=== PATIENT | female | born 1955 | race Caucasian/White ===

== ENCOUNTER 2019-04-28 00:50 | Outpatient (CLI) | payer BC, SELFPAY ==
--- NOTE | 2019-04-28 15:58 | DI.DEXA_ITS ---
SYMPTOM/DIAGNOSIS: SCREENING FOR OSTEOPOROSIS IN POSTMENOPAUSAL WOMAN, Z78.0 DEXA SCAN: Dexa scan was performed according to the usual protocol. Please see the worksheets on PAC's. The findings for lumbar spine scanning are T score of -.1. Findings for left hip scanning are T score of -1.2 with left femoral neck T score of -.7. The findings for left forearm scanning are T score of -1.2. CONCLUSION: Findings consistent with osteopenia. Please note that the lateral vertebral scanogram shows no evidence of a vertebral compression fracture.
--- NOTE | 2019-04-28 16:17 | DI.MAMMO_ITS ---
SYMPTOM/DIAGNOSIS: SCREENING, Z12.31 MAMMOGRAMS: Mammograms were interpreted according to the usual protocol including computer analysis with CAD system, tomosynthesis and C view imaging. The breasts are of moderate density with fairly symmetrical distribution of fibroglandular tissue. No dominant mass or clumped microcalcification is identified in either breast. The current examination is compared with previous examinations including 09/2013 and there has been no gross interval change in appearance in comparison with the previous studies. CONCLUSION: No specific evidence of malignancy at this time. Routine screening examinations are suggested at yearly intervals in this age group according to the ACS/ACR guidelines. Category 1. Breast density, category B. MQSA ASSESSMENT OF FINDINGS: Negative. Category 1. Patient will receive a letter notifying them of these results. BI-RADS category B. There are scattered areas of fibroglandular density.
== END 2019-04-28 01:10 ==
PROVIDERS: PCP Family Medicine; Visit Provider Family Medicine
DX: Z78.0 Asymptomatic menopausal state (principal); M85.88 Other specified disorders of bone density and structure, other site; Z12.31 Encounter for screening mammogram for malignant neoplasm of breast
CPT/HCPCS: 77063; 77067; 77080

== ENCOUNTER 2019-10-09 14:20 | Outpatient (REF) | payer BC, SELFPAY ==
[2019-10-09 20:53] LABS: HCT 36.7 % (36.0-46.0); HGB 11.9 g/dL (12.0-15.5); Mean Corp. HGB Concentration 32.4 g/dL (32.0-36.0); Mean Corpuscular Hemoglobin 34.4 pg (27.0-33.0); Mean Corpuscular Volume 106.1 fL (80-95); Mean Platelet Volume 10.2 fL (8.0-11.0); Platelet Count 261 x1000/uL (130-400); RBC 3.46 m/cumm (4.00-5.20); RBC Distribution Width 12.1 % (11.7-14.6); White Blood Cell Count 5.33 k/cumm (4.4-10.8)
[2019-10-09 21:42] LABS: TSH (W/Ref FT4) 1.25 uIU/mL (0.36-3.74); Vitamin B12 952 pg/mL (193-986)
== END 2019-10-09 14:40 ==
LOC: NCHCN 14:20
PROVIDERS: PCP Family Medicine; Visit Provider Family Medicine
DX: E03.9 Hypothyroidism, unspecified (principal); E53.8 Deficiency of other specified B group vitamins
CPT/HCPCS: 85027; 82607; 84443

== ENCOUNTER 2020-05-05 11:04 | Outpatient (CLI) | payer BC, SELFPAY ==
--- NOTE | 2020-05-05 10:30 | DI.RAD_ITS ---
EXAM: XR SHOULDER RT COMPLETE 2+V CLINICAL HISTORY: Pain after fall TECHNIQUE: COMPARISON: CR LEFT SHOULDER COMPLETE from 07/27/2015 FINDINGS: Three views were obtained. There is a calcific or ossific radiodensity projected adjacent to the sup raspinatus insertion on the humeral head, this may reflect supraspinatus calcific peritendinitis. Ho wever, in the setting of acute injury, the possibility of mildly displaced greater tuberosity fractur e of the humeral head is raised. Correlation with additional radiographic views or CT suggested to d ifferentiate these possibilities. Apart from mild degenerative changes of glenohumeral and AC joints, no additional significant finding s are seen. IMPRESSION: RADIATION DOSE DELIVERED: Total DLP
== END 2020-05-05 11:24 ==
PROVIDERS: PCP Family Medicine; Referring Provider Family Medicine; Visit Provider Physician Assistant Surgical
DX: M19.011 Primary osteoarthritis, right shoulder (principal); M25.511 Pain in right shoulder
CPT/HCPCS: 73030

== ENCOUNTER 2020-07-05 01:05 | Outpatient (CLI) | payer BC, SELFPAY ==
--- NOTE | 2020-07-05 10:40 | DI.MRI_ITS ---
EXAM: MR UPPER JOINT RT WO CLINICAL HISTORY: RT SHOULDER PAIN,CALCIFIC TENDINITIS,IMPINGEMENT SYNDROME,M75.31,M75.21,. TECHNIQUE: Multiplanar multisequence MRI was performed. COMPARISON: CR XR SHOULDER RT COMPLETE 2+V from 05/05/2020 CR XR SHOULDER RT COMPLETE 2+V from 05/05/2020 FINDINGS: MR examination shoulder was performed according to the usual protocol. Bones: There is markedly abnormal signal of the greater tuberosity of the humerus with linear areas o f abnormal signal and focal bony loss also present consistent with an acute or subacute fracture. Mi ld hypertrophic degenerative changes of the acromioclavicular joint noted. Slight marginal osteophyt e formation at the glenohumeral joint with probable articular cartilage thinning of the humeral head. Rotator cuff: There is mildly abnormal signal in supraspinatus and subscapularis tendons consistent w ith tendinosis. No discrete tendon tear. The supraspinatus attachment on the humerus appears to be involved with the aforementioned apparent greater tuberosity fracture without a discrete tendinous te ar. Infraspinatus and teres minor muscle and tendons grossly unremarkable. Biceps tendon: Biceps tendon and anchor appear intact with normal position of the tendon in the bicip ital groove. Labrum: Mild labral effacement, no gross labral tear by noncontrast criteria. IMPRESSION: There is an apparent nondisplaced greater tuberosity fracture of the humerus involving the region of the supraspinatus to subscapularis footprint. No additional significant findings. DATA REPOSITORY:
== END 2020-07-05 01:25 ==
PROVIDERS: PCP Family Medicine; Visit Provider Student in an Organized Health Care Education/Training Program
DX: S42.254A Nondisplaced fracture of greater tuberosity of right humerus, initial encounter for closed fracture (principal); M75.31 Calcific tendinitis of right shoulder; M75.41 Impingement syndrome of right shoulder
CPT/HCPCS: 73221

== ENCOUNTER 2020-08-01 13:25 | Outpatient (CLI) | payer BC, SELFPAY ==
--- NOTE | 2020-08-01 13:15 | DI.RAD_ITS ---
EXAM: XR SHOULDER RT COMPLETE 2+V CLINICAL HISTORY: R shoulder fx. TECHNIQUE: 2D digital imaging was performed. COMPARISON: CR XR SHOULDER RT COMPLETE 2+V from 05/05/2020 MR MR UPPER JOINT RT WO from 07/05/2020 FINDINGS: BONES: The fracture at the superior humeral head small displaced fragment is again noted, unchanged.. No bony destructive lesion is seen. JOINTS: No dislocation present. Mild spurring at the AC joint and glenoid. SOFT TISSUE: Normal. Sternal wires and aortic valve prosthesis are seen. IMPRESSION: Stable appearance of superior humeral head fracture. DATA REPOSITORY: RADIATION DOSE DELIVERED:
== END 2020-08-01 13:45 ==
PROVIDERS: PCP Family Medicine; Referring Provider Family Medicine; Visit Provider Physician Assistant
DX: S42.201A Unspecified fracture of upper end of right humerus, initial encounter for closed fracture (principal)
CPT/HCPCS: 73030

== ENCOUNTER 2020-08-17 10:33 | Outpatient (CLI) | payer BC, SELFPAY ==
--- NOTE | 2020-08-17 09:00 | DI.RAD_ITS ---
EXAM: XR SHOULDER RT COMPLETE 2+V CLINICAL HISTORY: F/u. TECHNIQUE: 2D digital imaging was performed. COMPARISON: CR XR SHOULDER RT COMPLETE 2+V from 05/05/2020 CR XR SHOULDER RT COMPLETE 2+V from 05/05/2020 MR MR UPPER JOINT RT WO from 07/05/2020 MR MR UPPER JOINT RT WO from 07/05/2020 FINDINGS: Calcific density off the superolateral aspect humeral head is again noted.. This is either related to calcific rotator cuff tendinitis or mildly displaced fracture fragment of the greater tuberosity. G lenohumeral joint space otherwise unremarkable. The subacromial space is not diminished. Mild degene rative changes in the AC joint. Sternotomy wires noted. IMPRESSION: As above. Findings are either related to calcific tendinitis and/or trauma related. This DATA REPOSITORY: RADIATION DOSE DELIVERED:
== END 2020-08-17 10:53 ==
PROVIDERS: PCP Family Medicine; Referring Provider Family Medicine; Visit Provider Student in an Organized Health Care Education/Training Program
DX: M25.811 Other specified joint disorders, right shoulder (principal); M19.011 Primary osteoarthritis, right shoulder
CPT/HCPCS: 73030

== ENCOUNTER 2020-09-23 04:35 | Outpatient (CLI) | payer BC, SELFPAY ==
--- NOTE | 2020-09-23 07:45 | DI.CT_ITS ---
EXAM: CT UPPER EXTREMITY RT WO CLINICAL HISTORY: Greater tuberosity fracture,ARTHRITIS,M19.011,NON UNION TECHNIQUE: Imaging Protocol: Axial computed tomography images with coronal and sagittal reformatted images were created and reviewed. CONTRAST MATERIAL: Intravenous: None COMPARISON: CR XR SHOULDER RT COMPLETE 2+V from 08/17/2020 CR XR SHOULDER RT COMPLETE 2+V from 08/17/2020 FINDINGS: There are fracture fragments evident just above the greater tuberosity. No prominent Hill-Sachs defo rmity. Lesser tuberosity is unremarkable. Mild degenerative changes. No osteophytes. No degenerative suba rticular cysts seen in the osseous glenoid and humeral head. There appears to have been fracture of the superior aspect of the greater tuberosity. IMPRESSION: Fracture greater tuberosity with mild displacement of fragments. RADIATION DOSE DELIVERED: 513.36mGy.cm Total DLP DATA REPOSITORY: All CT scans at this facility are submitted to the National Radiology Data Registry (NRDR) Dose Index Registry (DIR) with the [employer] (ACR). RADIATION OPTIMIZATION: All CT scans at this facility use at least one of these dose optimization te chniques: automated exposure control; mA and/or kV adjustment per patient size (includes targeted exa ms where dose is matched to clinical indication); or iterative reconstruction.
== END 2020-09-23 04:55 ==
PROVIDERS: PCP Family Medicine; Visit Provider Student in an Organized Health Care Education/Training Program
DX: S42.251A Displaced fracture of greater tuberosity of right humerus, initial encounter for closed fracture (principal); M19.011 Primary osteoarthritis, right shoulder
CPT/HCPCS: 73200

== ENCOUNTER 2020-10-11 02:22 | Outpatient (CLI) | payer BC, SELFPAY ==
[2020-10-12 12:43] LABS: COVID-19 RT-PCR UVMMC Result Negative (Negative)
== END 2020-10-11 02:23 | disposition home or self-care (01) ==
LOC: LBO 02:22
PROVIDERS: PCP Family Medicine; Visit Provider Student in an Organized Health Care Education/Training Program
DX: Z11.52 Encounter for screening for COVID-19 (principal); Z01.818 Encounter for other preprocedural examination
CPT/HCPCS: U0003

== ENCOUNTER 2020-10-14 09:14 | Day surgery (SDC) | payer BC, SELFPAY ==
[2020-10-14] VITALS (8 sets, daily range): BP systolic 101–132; BP diastolic 61–73; PULSE 56–79; RESP 12–18; TEMP 36.4–36.5; O2SAT 97–100
[2020-10-14] MEDS: Lactated Ringers 1,000 ML 100 ML IV ×2 (10:24→13:19)
[2020-10-14] MEDS: ceFAZolin 2 GM/50 ML BAG IVPB (12:42)
[2020-10-14] MEDS: Bupivacaine 0.25% Pres-Free 30 ML VIAL (14:00)
[2020-10-14] MEDS: EPINEPHrine 1 MG/ML AMP pres-free (14:00)
[2020-10-14] MEDS: EPINEPHrine 30 MG/30 ML VIAL (14:31)
--- NOTE | 2020-10-14 15:40 | PDOC.DSDIS_ITS ---
Discharge Plan Disposition Patient Disposition: HOME Condition: Stable Discharge Details Reason For Visit: Right shoulder surgery Attending Provider: Conner Alcantar Primary Care Provider: Sabina Chavez Home Meds and New Rx's Prescriptions: New naproxen 250 mg tablet 250 - 500 mg PO BID PRN (Reason: Moderate pain or swelling) Qty: 60 RF: 0 ondansetron 4 mg tablet,disintegrating 4 mg PO Q6H PRN (Reason: nausea or vomiting) Qty: 5 RF: 0 oxycodone 5 mg tablet 5 - 10 mg PO Q4H PRN (Reason: moderate to severe pain) Qty: 18 RF: 0 Continued Anoro Ellipta 62.5-25 mcg/actuation blister with device 1 inh IH DAILY RF: 0 multivitamin [Daily Multi-Vitamin] Tablet 1 tab PO DAILY RF: 0 aspirin 325 MG tablet 650 mg PO DAILY RF: 0 indomethacin 25 MG capsule 25 mg PO PRN RF: 0 propranolol 10 MG tablet 10 mg PO BID RF: 0 levothyroxine [Synthroid] 50 MCG tablet 50 mcg PO DAILY RF: 0 hydroxyzine HCl 25 MG tablet 25 mg PO Q 8 HR PRN RF: 0 amitriptyline 25 MG tablet 2 tab PO HS RF: 0 amoxicillin 500 MG capsule 4 tab PO .PRIOR TO DENTIST RF: 0 acetaminophen [Tylenol] 325 MG tablet 650 mg PO Q6H PRN PRNQty: 0 RF: 0 ibuprofen [Advil] 200 MG tablet 2 tab PO TID PRN PRNQty: 0 RF: 0 Discharge Instructions Additional Instructions: Surgery: Shoulder arthroscopy with rotator cuff repair, biceps tenodesis, extensive debridement, subacromial decompression, and distal clavicle excision. Activity: You should keep your arm at your side in a neutral position at all times except for physical therapy. Do not try to lift or raise your arm using your own muscles. You should use the sling whenever you are out of the house. You may have to adjust the abduction pillow or remove it for comfort. At home it is best to remove the sling and rest the arm on a pillow at your side or support the operative side with your other hand. You may allow the arm to da ngle at your side. A physical therapy prescription will be sent electronically to begin in 2-3 weeks. Prescriptions: Resume Aspirin 325 mg daily starting tomorrow Naproxen 250 mg take 1-2 every 12 hours with a meal as needed for moderate pain Oxycodone 5 mg take 1-2 every 4-6 hours as needed for severe pain You may use [id number] Tylenol (acetaminophen) as needed for mild pain. These pain medications may be taken all at once or in different combinations as needed. Ondansetron (Zofran) 4 mg take 1 orally dissolving tablet every 6 hours as needed for nausea or vomiting Also, recommend Colace (docusate) as a stool softener as surgery and pain medicine cause constipation. Dressings: Remove shoulder bandage after 3 days. Leave the sticky Steri-Strips in place until they fall off or remove them after you shower. Cover the incisions with Band-Aids or leave them open to air. The biceps bandage (inside upper arm) is glued on separately. You may leave this one on a few days longer if it is difficult to remove. There is also glue underneath this bandage that can be left in place until it peels off. You may shower after 5 days. Follow-up: 10-[address] Alcantar (1:30 PM on 10/26/20) You may take off the leg compression stockings this evening at home. You may also leave them on a few days longer if you have a history of leg swelling or edema. Let us know right away if you develop any redness, drainage, fevers, chest pain, or trouble breathing. Do not drink alcohol or drive for at least 24 hours after anesthesia. Please call the office during business hours with any questions or concerns. Referrals: Conner Alcantar MD [ [facility] STAFF PHYSICIAN] - Discharge Orders Discharge Orders: Discharge Order (Routine); Ordered 10/14/20 Ordered By: Conner Alcantar DS: Diagnosis Discharge Diagnosis (1) Traumatic tear of right rotator cuff: Status: Acute (2) Arthritis of right acromioclavicular joint: Status: Acute (3) Bursitis of right shoulder: Status: Acute (4) Fracture of greater tuberosity of right humerus: Status: Acute (5) Tendinitis of long head of biceps brachii of right shoulder: Status: Acute (6) Impingement syndrome of right shoulder: Status: Acute
[2020-10-14] MEDS: HYDROmorphone 2 MG/ML VIAL IVP (15:52)
--- NOTE | 2020-10-14 16:03 | W.PM.OP ---
Date of service: 10/14/20 Time of Service: 12:15 Operative Note Operative Note DATE OF PROCEDURE: 10/14/20 PRE-OP DIAGNOSIS: Right: 1. Rotator cuff tear equivalent greater tuberosity fracture 2. LHB tendinopathy 3. Bursitis 4. Impingement 5. AC Joint arthritis POST-OP DIAGNOSIS: same PROCEDURE: Right: 1. Rotator cuff repair, CPT# 80782. This involved repair of the partial articular sided supraspinatus tendon bony avulsion fracture using anchors and sutures to reattach the rotator cuff back to the greater tuberosity. 2. Open biceps tenodesis, CPT# 31416. This involved reattaching the long head of the biceps tendon to the proximal humerus in the sub-pectoral area of the bicipital groove at the correct tension. 3. Extensive debridement, CPT# 64319. This involved using arthroscopic hand instruments, power instruments, and radiofrequency instruments to release to release the long head of the biceps tendon and debride areas of significant superior labral tearing, abundant anterior and superior synovitis, debride cartilage including loose flaps posterior humeral head as a chondroplasty, and humeral head avulsion bony fragments about the greater tuberosity while working within the glenohumeral joint anteriorly, superiorly and posteriorly. 4. Subacromial decompression with partial acromioplasty, CPT# 26836. This involved using arthroscopic power instruments and a radiofrequency wand to complete a bursectomy and remove bone spurs on the undersurface of the acromion. 5. Arthroscopic distal clavicle excision, CPT# 46928. This involved arthroscopically exposing the underside of the acromioclavicular joint, smoothing out bone spurs, and using a loretta to remove approximately 5 mm of the distal clavicle so there was no bone left engaging the acromion. The assistant professor of physics was medically required in order to help assist in techniques above, which require positioning the arm, holding the arthroscope, and manipulating multiple instruments and sutures at the same time. This cannot be done without the help of an experienced assistant professor of physics. SURGEON: Conner Alcantar CAR REFINISHER: Paco Cisneros ANESTHESIA: GETA and regional ESTIMATED BLOOD LOSS: 10 PATHOLOGY: none sent COMPLICATIONS: None Patient was transported to: PACU Patient's condition: stable Implants: Arthrex: 3.9 mm knotless corkscrew anchors x2 and 4.75 mm SwiveLock x1 and FiberTak 2.6 mm all-suture Button Implant Indications: The patient was diagnosed with the above conditions and appropriately indicated for surgical intervention. Please see complete medical record for details. Findings: Exam under anesthesia: Full, symmetrical range of motion without instability. Mechanical crepitation with glenohumeral circumduction. Glenohumeral joint: Profound split tearing, subluxation and degeneration of the intra-articular segment of the long head of the biceps tendon and a SLAP tear both with significant fraying and disruption of the biceps anchor. Significant anterior and superior synovitis. Moderate posterior synovitis. Posterior humeral head 6 x 8 mm partial-thickness unstable cartilage flap. Moderate central glenoid grade 2-3 chondromalacia. Intact subscapularis. Intact infraspinatus. Partial articular sided bony avulsion supraspinatus tendon with multiple small bony avulsion fragments and exposed 30% medial to lateral footprint from the biceps interval anteriorly to the infraspinatus posteriorly. Partial healing versus partial nonunion with fluid line between avulsion bony fractures and rotator cuff greater tuberosity footprint bony bed. Subacromial space: Significant bursitis especially laterally. Moderate undersurface acromial bone spur and impinging inferiorly acromioclavicular joint. Intact bursal rotator cuff. Procedure Description: In the operating room, general anesthesia was induced. Bilateral shoulders were examined. The patient was positioned in the beachchair position. All bony prominences were well-padded. Preoperative antibiotics were administered. The shoulder was prepped and draped in the usual sterile fashion. The correct patient, procedure, and side of the procedure were all verified prior to incision. Starting through the posterior portal a standard complete diagnostic arthroscopy was performed of the glenohumeral joint including inspection of the long head of the biceps, anterior and superior labrum, subscapularis tendon, supraspinatus and infraspinatus tendons, and axillary recess. The glenoid and humeral head cartilage as well as the posterior labrum were inspected from an anterior viewing portal. Significant findings and interventions noted above. The biceps tendon was released from the superior labrum using arthroscopic scissors. Starting through the posterior portal, the arthroscope was directed into the subacromial space. A lateral 50 yard line lateral portal was created. A combination of power instruments and a radiofrequency ablator were used to debride bursitis anteriorly, posteriorly, and laterally as well as expose and smooth bone spurring on the undersurface of the acromion. The coracoacromial ligament was preserved. The bursectomy was completed viewing laterally and working from posteriorly and the rotator cuff was thoroughly inspected with findings noted above. The anterior portal was redirected towards the undersurface of the AC joint. A shaver and electrocautery device were used to clear soft tissue from the undersurface of the AC joint. A loretta was then inserted and used to remove the distalmost 5 mm of the distal clavicle. Care was taken to alternate between working through the anterior portal and viewing through the anterior portal to ensure that proper amount of bone was removed and there was no engaging bone left behind especially superiorly. 20 cc of 0.25% bupivacaine with epinephrine was infiltrated about a 2 to 3 cm longitudinal incision at the inferior margin of the pectoralis major localized over the long head of the biceps tendon. Blunt and sharp dissection were used to expose the tendon in the bicipital groove. The tendon was brought out of the wound and kept off the skin on top of a blue towel. Using a fiber loop suture the tendon was prepped from the musculotendinous junction a few centimeters proximal. The excess tendon was amputated. The correct location for sub-pectoral fixation was localized, prepped with a rasp, and then drilled with a 2.6 mm drill pin in a unicortical fashion through the guide. The FiberTak button implant was inserted through the guide, deployed, and tested. The free FiberLoop suture ends were then passed through the implant using the preloaded FiberLoop shuttling sutures. The sutures were tensioned bringing the tendon down to bone. Tension and fixation were then tested and found to be appropriate. The free ends of the suture were were tied compressing tendon to bone. The wound was copiously irrigated with normal saline. Subcutaneous tissue was closed using 3-0 Monocryl in a buried interrupted fashion. Skin was closed using 3-0 Monocryl in a buried subcuticular running fashion. Skin glue was applied over the incision. Mastisol was applied about the incision. The incision was covered with Telfa, gauze, and covered with a Tegaderm dressing. Attention was then turned to the partial articular sided supraspinatus tendon bony avulsion rotator cuff tear fracture. Owing to significant intact rotator cuff tendon and bone laterally over the greater tuberosity, the decision was made to proceed with percutaneous PASTA type repair. First, the fracture bed was explored with elevators and debrided of fibrinous tissue to optimize healing especially underneath the intact bony segment more centrally under the supraspinatus footprint and that it was allowed to retract back down on its own closing the door with only the medial margin aspect still exposed. The arm was positioned at the patient's side with slight external rotation. Spinal needles were used to localize percutaneous anchor placements coming off of the acromion targeting the articular margin anteriorly and posteriorly. The Nitinol is inserted through the spinal needle, spinal needle removed, a small skin incision was made, and a dilator used to confirm appropriate trajectory. The fishmouth spear was then inserted, dilator removed, and the punch tap used for the planned corkscrew anchor. This anchor was inserted at this anterior position. This process was repeated similarly for the posterior anchor. The arthroscope was redirected into the subacromial space. A cannula was inserted at the 50 yard line portal laterally. Carefully, the repair stitch from the posterior anchor and the looped end of the leg from the anterior suture were brought out this portal and then the repair stitch was fed through the anterior anchor. This was repeated bringing the anterior repair stitch out the posterior anchor. Provisional tightening was done just bringing sutures just about down to the rotator cuff. The arthroscope was then redirected back into the glenohumeral joint to observe the reduction of bony avulsion and supraspinatus tendon over the articular sided zone of injury. Appropriate tensioning was completed and repair inspected found to be stable. The arthroscope was then redirected back into the subacromial space. The free remaining and from the anterior and posterior anchors was then brought out the lateral portal. The arm was positioned optimized trajectory for the planned lateral row anchor. The ablator was used to debride bursa just off the lateral margin of the greater tuberosity. The punch was used to localize placement for the suture anchor. The sutures were fed through the swivel lock eyelet and the swivel lock inserted into bone with appropriate tension on the repair sutures achieving compression over the greater tuberosity avulsion fracture and rotator cuff tear. Suture tails were cut. The shoulder was drained of arthroscopic fluid. All portal sites were copiously irrigated. These incisions were closed using 3-0 Monocryl in a buried fashion, covered with Mastisol, Steri-Strips, Xeroform, dry gauze, and ABDs. The dressings were covered and secured with Medipore tape. The operative extremity was placed into a sling for immobilization. The patient awoke from anesthesia without complication and was transferred to the recovery room in a stable condition.
== END 2020-10-14 17:40 | disposition home or self-care (01) ==
PROVIDERS: PCP Family Medicine; Visit Provider Student in an Organized Health Care Education/Training Program
PROC: (CPT 29827; principal; 2020-10-14 10:45)
DX: S46.011A Strain of muscle(s) and tendon(s) of the rotator cuff of right shoulder, initial encounter (principal); S42.251A Displaced fracture of greater tuberosity of right humerus, initial encounter for closed fracture; S43.431A Superior glenoid labrum lesion of right shoulder, initial encounter; X58.XXXA Exposure to other specified factors, initial encounter; M75.21 Bicipital tendinitis, right shoulder; M75.51 Bursitis of right shoulder; M25.811 Other specified joint disorders, right shoulder; M19.011 Primary osteoarthritis, right shoulder; M65.811 Other synovitis and tenosynovitis, right shoulder; M94.211 Chondromalacia, right shoulder; G89.18 Other acute postprocedural pain; K21.9 Gastro-esophageal reflux disease without esophagitis
CPT/HCPCS: 29827; 23430; 29823; 29826; 29824; C1713; 76942; J0131; J0171; J0690; J1100; J1885; J2250; J2405

== ENCOUNTER 2020-12-13 00:53 | Outpatient (CLI) | payer BC, SELFPAY ==
--- NOTE | 2020-12-13 | DI.RAD_ITS ---
EXAM: XR FOOT LT COMPLETE CLINICAL HISTORY: LT FOOT PAIN, M79.672 TECHNIQUE: COMPARISON: No exams were available for comparison FINDINGS: Three views were obtained. Bony alignment generally appears within normal limits. There is deformit y of the head of the 2nd metatarsal and deformity of the base the proximal phalanx of the 2nd toe, qu estion posttraumatic. Mild deformity of the head of the 3rd metacarpal is also noted. Cartilaginous joint space of the 2nd MTP joint appears fairly well maintained. No other significant bony abnormality seen. IMPRESSION: No evidence of acute process. Question old post-traumatic deformities at 2nd MTP joint, if the patien t has clinical symptoms referable to this region additional evaluation with CT or MR may be considere d. RADIATION DOSE DELIVERED: Total DLP
== END 2020-12-13 01:13 ==
PROVIDERS: PCP Family Medicine; Visit Provider Family Medicine
DX: M79.672 Pain in left foot (principal); M21.6X2 Other acquired deformities of left foot
CPT/HCPCS: 73630

== ENCOUNTER 2021-06-06 08:21 | Outpatient (REF) | payer BC, SELFPAY ==
[2021-06-06 14:44] LABS: ALT 50 U/L (14-59); AST 57 U/L (15-37); Albumin 3.8 g/dL (3.4-5.0); Alkaline Phosphatase 95 U/L (46-116); BUN 15 mg/dL (7-18); Bilirubin, Total 0.3 mg/dL (0.2-1.0); Calcium 9.6 mg/dL (8.5-10.1); Calculated LDL 198 mg/dL (<100); Chloride 106 mmol/L (98-107); Cholesterol 319 mg/dL (<200); Estimated GFR 55.82 (mL/min/1.73m2); Glucose 116 mg/dL (74-106); HDL Cholesterol 88 mg/dL (40-60); Potassium 5.4 mmol/L (3.5-5.1); Sodium 141 mmol/L (136-145); TSH (W/Ref FT4) 1.81 uIU/mL (0.36-3.74); Total Protein 7.1 g/dL (6.4-8.2); Triglyceride 168 mg/dL (<150)
== END 2021-06-06 08:22 | disposition home or self-care (01) ==
LOC: NCHCN 08:21
PROVIDERS: PCP Family Medicine; Visit Provider Family Medicine
DX: E03.9 Hypothyroidism, unspecified (principal); R03.0 Elevated blood-pressure reading, without diagnosis of hypertension; Z00.00 Encounter for general adult medical examination without abnormal findings
CPT/HCPCS: 80053; 80061; 84443

== ENCOUNTER 2022-02-23 14:58 | Outpatient (REF) | payer MEDICARE, SELFPAY ==
[2022-02-23 14:26] LABS: ALT 48 U/L (14-59); AST 38 U/L (15-37); Alkaline Phosphatase 88 U/L (46-116); Anion Gap 8.9 mmol/L (3-11); BUN 18 mg/dL (7-18); Bilirubin, Total 0.3 mg/dL (0.2-1.0); CO2 27.1 mmol/L (21.0-32.0); Calcium 9.7 mg/dL (8.5-10.1); Calculated LDL 177 mg/dL (<100); Chloride 102 mmol/L (98-107); Cholesterol 291 mg/dL (<200); Estimated GFR 55.64 (mL/min/1.73m2); Glucose 94 mg/dL (74-106); HDL Cholesterol 93 mg/dL (40-60); Potassium 5.5 mmol/L (3.5-5.1); Sodium 138 mmol/L (136-145); Triglyceride 107 mg/dL (<150)
== END 2022-02-23 14:59 | disposition home or self-care (01) ==
LOC: NCHCN 14:58
PROVIDERS: PCP Family Medicine; Visit Provider Family Medicine
DX: E78.5 Hyperlipidemia, unspecified (principal); I10 Essential (primary) hypertension
CPT/HCPCS: 80053; 80061

== ENCOUNTER 2022-09-14 11:43 | Outpatient (REF) | payer MEDICARE, SELFPAY ==
[2022-09-14 15:51] LABS: HCT 40.1 % (36.0-46.0); MCH 35.1 pg (27.0-33.0); MCHC 32.4 % (32.0-36.0); MCV 108 fL (80-95); MPV 10.4 fL (8.0-11.0); Platelet Count 275 10^3/uL (130-400); RDW 12.9 % (11.7-14.6); WBC 5.55 10^3/uL (4.4-10.8)
[2022-09-14 16:04] LABS: ALT 43 U/L (14-59); AST 67 U/L (15-37); Albumin 4.1 g/dL (3.4-5.0); Alkaline Phosphatase 100 U/L (46-116); Anion Gap 6.3 mmol/L (3-11); BUN 14 mg/dL (7-18); Bilirubin, Total 0.5 mg/dL (0.2-1.0); CO2 30.7 mmol/L (21.0-32.0); CREATININE 0.8 mg/dL (0.55-1.02); Chloride 104 mmol/L (98-107); Estimated GFR 81.21 (mL/min/1.73m2); Glucose 103 mg/dL (74-106); Potassium 5.4 mmol/L (3.5-5.1); Sodium 141 mmol/L (136-145); TSH (W/Ref FT4) 2.54 uIU/mL (0.36-3.74); Total Protein 7.4 g/dL (6.4-8.2)
== END 2022-09-14 11:44 | disposition home or self-care (01) ==
LOC: NCHCN 11:43
PROVIDERS: PCP Family Medicine; Visit Provider Family Medicine
DX: E03.9 Hypothyroidism, unspecified (principal); I10 Essential (primary) hypertension; E78.5 Hyperlipidemia, unspecified
CPT/HCPCS: 80053; 85027; 84443

== ENCOUNTER 2022-09-18 00:40 | Outpatient (CLI) | payer MEDICARE, SELFPAY ==
--- NOTE | 2022-09-18 | DI.MAMMO_ITS ---
Exam(s) MAMMO SCREENING EXAM: MAMMO SCREENING CLINICAL HISTORY: SCREENING, Z00.00, WELL ADULT/PREVENTATIVE EXAM TECHNIQUE: Bilateral full field digital CC and MLO mammographic images were obtained with 3D tomosyn thesis and utilizing computer aided detection (CAD). COMPARISON: Available for comparison. FINDINGS: Masses/Architectural Distortion: None seen. Microcalcifications: No suspicious pleomorphic-type are seen. Skin Thickening/Nipple Retraction: None. IMPRESSION: 1. No significant interval change with no specific features of malignancy noted. 2. Unless there is more urgent need, screening mammography is recommended, as per [employer] [place] [employer] guidelines. BI-RADS Category 1 - Negative Breast Density - Category B - Scattered areas of fibroglandular density Breast density category C or D implies that the patient has dense breast tissue. Dense breast tissue is very common and is not abnormal but dense breast tissue can make it harder to find cancer on a ma mmogram. Also, dense breast tissue may increase their breast cancer risk. This information about the result of the mammogram report was provided to the patient to raise their awareness. Use this report when you speak with the patient about their risks for breast cancer, which includes their family hist ory. At that time, you may recommend for more screening tests (Ultrasound or MRI) as they might be us eful based on their risk. A negative radiographic report should not delay biopsy if a dominant or clinically suspicious mass is present. Up to ten percent of cancers are not identified on mammography. A negative report may reinforce clinical impression. Adenosis and dense breasts may obscure an underlying neoplasm. False positive reports average 6 to 10%. Patient will receive a letter notifying them of these results.
== END 2022-09-18 01:00 ==
PROVIDERS: PCP Family Medicine; Visit Provider Family Medicine
DX: Z12.31 Encounter for screening mammogram for malignant neoplasm of breast (principal)
CPT/HCPCS: 77063; 77067

== ENCOUNTER 2022-10-02 13:23 | Outpatient (CLI) | payer MEDICARE, SELFPAY ==
--- NOTE | 2022-10-02 13:15 | RT.EKG_ITS ---
APPROVED REPORT Exam: Resting ECG Reason for Exam: cardiac evaluation Patient Location: O HR:63 bpm ECG Measurements Heart Rate 63 AXIS IN 174 P 57 QRSd 101 QRS -3 QT 446 T 59 QTc 457 Conclusion Sinus rhythm...normal P axis, V-rate 50- 99 Abnormal R-wave progression, early transition...QRS area>[address] depression, lateral leads...ST <-0.04mV, I aVL V5 V6
== END 2022-10-02 13:24 | disposition home or self-care (01) ==
LOC: DI.CARD 13:24
PROVIDERS: PCP Family Medicine; Visit Provider Internal Medicine Cardiovascular Disease
DX: E78.5 Hyperlipidemia, unspecified (principal); I10 Essential (primary) hypertension; R07.9 Chest pain, unspecified; Z95.2 Presence of prosthetic heart valve
CPT/HCPCS: 93010

== ENCOUNTER → 2022-10-02 13:30 | Outpatient (BNVA) | payer MEDICARE, SELFPAY | PROVIDERS: PCP Family Medicine; Referring Provider Family Medicine; Visit Provider Internal Medicine Cardiovascular Disease | DX: R07.9 Chest pain, unspecified (principal); I10 Essential (primary) hypertension; Z95.3 Presence of xenogenic heart valve; Z98.890 Other specified postprocedural states; R06.09 Other forms of dyspnea | CPT/HCPCS: 93005; 99214 ==

== ENCOUNTER 2023-03-26 00:36 | Outpatient (CLI) | payer MEDICARE, SELFPAY ==
--- NOTE | 2023-03-26 07:15 | DI.US_ITS ---
APPROVED REPORT EXAM: Comprehensive 2D, Doppler, and color-flow Echocardiogram Patient Location: Out-Patient Shellfish Weigher: Travis Funes RDMS, RVT Indications: s/p AVR, exertional dyspnea, chest pain Other Information Study Quality: Adequate Conclusion Normal left ventricular wall thickness and chamber size. Ejection fraction is 55%. Wall motion is n ormal Normal right ventricular size and systolic function Both atria are normal in size There is a bioprosthetic aortic valve. Gradients are appropriate. There is no aortic regurgitation Thickened mitral leaflets with mild to moderate eccentric mitral regurgitation Normal tricuspid valve with moderate regurgitation. Estimated right ventricular systolic pressure is 30 mmHg Mildly dilated ascending aorta 3.89 cm the Wall motion Left Ventricle The left ventricle is normal size. The left ventricular systolic function is normal. The left ventric ular ejection fraction is within the normal range. There is normal left ventricular wall thickness. T here is normal LV segmental wall motion. There is no ventricular septal defect visualized. LVEF is 55 %. Right Ventricle The right ventricle is normal size. The right ventricular systolic function is normal. The RVSP is 30 .3 mmHg. Atria The left atrium size is normal. The right atrium size is normal. The interatrial septum is intact wit h no evidence for an atrial septal defect. Aortic Valve Bioprosthetic aortic valve is present. No aortic regurgitation is present. Bioprosthetic aortic valve is present. Mitral Valve Thickened mitral leaflets No evidence of mitral valve stenosis. Mild to moderate mitral regurgitation . Tricuspid Valve The tricuspid valve is normal in structure. There is no tricuspid valve stenosis. Moderate tricuspid regurgitation. Pulmonic Valve The pulmonary valve is normal in structure. There is no pulmonic valvular stenosis. There is no pulmo noel valvular regurgitation. Great Vessels The aortic root is normal in size. The ascending aorta is mildly dilated. Aortic arch is normal in ca liber. IVC is normal in size and collapses >50% with inspiration. Pericardium There is no pericardial effusion. 2D Dimensions IVSD d PLAX 0.61 cm F: 0.6-1.0 LV Vol A2C d MOD 54.8 mL LVPW d PLAX 0.64 cm F: 0.6 - 1.0 LV Vol A4C d MOD 85.1 mL LVID d PLAX 3.98 cm F: 3.8 - 5.2 LA vol/ BSA A4C s A-L 18.8 mL/m2 LVDs 2.65 cm F: 2.2 - 3.5 LA Area A4C s MOD 12.02 cm2 Ao Root d 2.70 cm F: 2.7 - 3.3 LV EF A4C MOD 54.7 % Ao Asc Diam d 3.89 cm F: 2.3 - 3.1 LV EF A2C MOD 54.2 % LV EF Teichholz 61.3 % LV EF Biplane MOD 54.5 % LVEF (Sandy's) 54.52 % F: 54 - 74 SV 37.42 mL LV Volume 56.55 mL F: 46 - 106 SV Index 24.23 mL/m2 LV Volume Index 36.72 mL/m2 F: 29 - 61 LV Vol Biplane MOD 68.6 mL FS 32.40 % M-Mode TAPSE 1.72 cm (M/F) >1.7 LV Diastology MV E' medial 0.095 (>0.07 m/s) E/A Ratio 0.8 LV E/e MED 8.20 (<14) MV E Vmax 0.78 (0.4-1.3 m/s) MV E' lateral 0.089 (>0.1 m/s) MV A Vmax 0.95 (0.4-1.3 m/s) LV E/e LAT 8.70 (<14) MV E/A Ratio 0.82 MV E/E' medial 8.21 MV E/E' lateral 8.73 Aortic Valve LVOT Area 3.21 cm2 AoV Area Vmax 1.93 cm2 LVOT Vmax 0.82 m/s AoV Area/ BSA (Vmax) 1.25 cm2/m2 LVOT Mean Pablo. 0.49 m/s GIANNI Mean Pablo. 1.90 cm2 LVOT Peak Grad 2.7 mmHg GIANNI Mean Pablo. Index 1.23 cm2/m2 LVOT Mean Grad 1.2 mmHg LVOT VTI 0.202 m LVOT Diam s 2.00 cm AoV Vmax 1.37 m/s Velocity Ratio 0.60 AoV Mean Pablo. 0.83 m/s AoV Peak Grad 7.5 mmHg LVOT SV 64.89 mL AoV Mean Grad 3.5 mmHg AoV VTI 0.289 m AoV Area VTI 2.24 cm2 AoV Area/ BSA (VTI) 1.45 cm/m2 Mitral Valve MV DT 137 (160-240 msec) MV PHT 40 msec MV Area PHT 5.55 cm2 MV VTI 0.301 m MV Area VTI 2.16 (4.0-6.0 cm2) Pulmonary Valve PV Vmax 0.86 (0.5-1.5 m/s) RVOT Peak Gr. 0.70 mmHg PV Peak Grad 2.9 mmHg RVOT Mean Gr. 0.40 mmHg PV Mean Grad 1.3 mmHg RVOT VTI 0.110 m PV VTI 0.188 m RVOT Vmax 0.42 m/s Tricuspid Valve TR Peak Grad 27.3 mmHg TR Vmax 2.61 m/s RA Pressure 3.00 mmHg RVSP (TR) 30.3 mmHg
== END 2023-03-26 00:56 ==
LOC: DI 00:37
PROVIDERS: PCP Family Medicine; Visit Provider Internal Medicine Cardiovascular Disease
DX: R07.9 Chest pain, unspecified (principal); Z95.3 Presence of xenogenic heart valve
CPT/HCPCS: 93306

== ENCOUNTER → 2023-04-01 13:15 | Outpatient (BNVA) | payer MEDICARE, SELFPAY | PROVIDERS: PCP Family Medicine; Visit Provider Internal Medicine Cardiovascular Disease | DX: I10 Essential (primary) hypertension (principal); Z95.2 Presence of prosthetic heart valve; E78.5 Hyperlipidemia, unspecified | CPT/HCPCS: 99213 ==

== ENCOUNTER → 2023-04-09 08:26 | Outpatient (BNVA) | payer MEDICARE, SELFPAY | PROVIDERS: PCP Family Medicine; Referring Provider Family Medicine; Visit Provider Surgery | DX: K21.9 Gastro-esophageal reflux disease without esophagitis (principal) | CPT/HCPCS: 99202; 99213 ==

== ENCOUNTER 2023-04-24 08:05 | Day surgery (SDC) | payer MEDICARE, SELFPAY ==
--- NOTE | 2023-04-24 08:15 | W.PM.PROGNOT ---
Date of Service Date of service: 04/24/23 Time of Service: 08:56 Assessment and Plan Assessment and plan (1) GERD (gastroesophageal reflux disease): Status: Chronic Assessment and plan: Katharine is a pleasant 67-year-old female who has had reflux for many years.? She was taking Prilosec [id number] and Tums.? In the recent past she started having swallowing issues and her primary care physician increased her PPI to 40 mg daily.? She has not noticed much difference.? She continues to use Tums.? She has had no anesthesia issues in the past.? We discussed the pathophysiology of GERD and dysphagia.? We reviewed the procedure in detail as well as the risks, benefits and complications.? Risks, benefits and complications have been reviewed. Complications include but are not limited to bleeding, pain, perforation, sore throat, aspiration, and adverse reaction to the medications.? Questions were entertained and answered to their satisfaction and they wished to proceed. No guarantees were given or implied.? After reviewing the risks, benefits and complications the patient had a good understanding of the complications and wished to proceed. Subjective Subjective Interval history since last seen: Katharine is here in same-day surgery today to undergo an EGD. I had seen her in the office for continued GERD symptoms as well as difficulty swallowing. She feels like she has a lump in the top of her throat. She has not had any new symptoms. She denies any chest pain or shortness of breath. She has not had an upper respiratory infection recently. Time Spent with Patient Time Spent with Patient: <25 minutes Time was spent: counseling the patient
--- NOTE | 2023-04-24 08:17 | ENDO_ITS ---
Date of service: 04/24/23 Time of Service: 10:52 Endoscopy Report DATE OF PROCEDURE: 04/24/23 PRE-OP DIAGNOSIS: GERD POST-OP DIAGNOSIS: other (gastritis, scarring of esophagus at 16 cm) PROCEDURE: EGD with biopsies SURGEON: Carol Conway ANESTHESIA TYPE: General:No Airway ESTIMATED BLOOD LOSS: 5 PATHOLOGY: other (Bx of stomach, esophagus, ) COMPLICATIONS: None DISPOSITION: same day INDICATIONS: Katharine is a pleasant 67-year-old female who has had reflux for many years.? She was taking Prilosec [id number] and Tums.? In the recent past she started having swallowing issues and her primary care physician increased her PPI to 40 mg daily.? She has not noticed much difference.? She continues to use Tums.? She has had no anesthesia issues in the past.? We discussed the pathophysiology of GERD and dysphagia.? We reviewed the procedure in detail as well as the risks, benefits and complications.? Risks, benefits and complications have been reviewed. Complications include but are not limited to bleeding, pain, pe rforation, sore throat, aspiration, and adverse reaction to the medications.? Questions were entertained and answered to their satisfaction and they wished to proceed. No guarantees were given or implied.? After reviewing the risks, benefits and complications the patient had a good understanding of the complications and wished to proceed. FINDINGS: inflammation of the stomach Shelf of scar tissue at 16 cm in the proximal esophagus PROCEDURE DESCRIPTION: After informed consent was obtained the patient was take to the procedure room and placed in a supine position. Monitors were applied and a time out was done. The patients name, date of , procedure type, allergies to medications and metal in their body was reviewed. A bite block was placed and the patient was sedated. Once sedated and comfortable the gastroscope was advanced through the oropharynx which was grossly normal into the esophagus. In the proximal esophagus at 16 cm there was a shelf of scar tissue noted. The mid and distal esophagus were noted to be normal. The scope was advanced into the stomach and through the pylorus into the 3rd portion of the duodenum. The duodenum was noted to be normal. The scope was retracted back into the stomach. There was moderate inflammation noted and biopsies were done to rule out H. pylori. There were no ulcers. The scope was retroflexed. The cardia and fundus were noted to be normal. There was no hiatal hernia noted. The scope was retracted back into the esophagus and biopsies were done of the GE junction to rule out Narayan's. The Z line was regular. The GE junction was at 35 cm. At 16 cm in the proximal esophagus, the scar tissue was biopsied in severeal places to hopefully soften the scar tissue. The scope was removed and the patient was woken up and taken back to [facility] in stable condition. Follow up: 2 weeks
[2023-04-24 08:20] VITALS: BP 151/73; PULSE 68; RESP 16; TEMP 36.5; O2SAT 100
[2023-04-24] MEDS: Lactated Ringers 1,000 ML 80 ML IV (08:33)
--- NOTE | 2023-04-24 08:38 | W.ANESPRE ---
General Info Date of Service Date Performed: 04/24/23 Height: 5 ft Weight: 59.9 kg Body Mass Index (BMI): 25.7 Surgical Procedure: Operation Date: 04/24/23 09:35 Proposed Procedure Side Surgeon p Gastroscopy Carol Conway MD Meds Allergies and Home Medications Allergies Allergy/AdvReac Type Severity Reaction Status Date / Time morphine Allergy Intermediate Hives Verified 04/24/23 08:17 topiramate [From Topamax] Allergy Mild Verified 04/24/23 08:17 codeine AdvReac Severe N&V Verified 04/24/23 08:17 Home Medication Medication Instructions Recorded amitriptyline 25 mg tablet 2 tab PO HS 04/03/14 indomethacin 25 mg capsule 25 mg PO PRN 07/27/15 hydroxyzine HCl 25 mg tablet 25 mg PO Q 8 HR PRN 01/03/16 levothyroxine 50 mcg tablet 50 mcg PO DAILY 01/03/16 (Synthroid) propranolol 10 mg tablet 10 mg PO BID 01/03/16 amoxicillin 500 mg capsule 4 tab PO .PRIOR TO DENTIST 05/21/16 acetaminophen 325 mg tablet 650 mg PO Q6H PRN PRN ##0 05/29/16 (Tylenol) ibuprofen 200 mg tablet (Advil) 2 tab PO TID PRN PRN ##0 05/29/16 umeclidinium 62.5 mcg-vilanterol 1 inh inhalation DAILY 05/05/20 25 mcg/actuation powdr for inhalation (Anoro Ellipta) multivitamin (Daily Multi-Vitamin 1 tab PO DAILY 08/17/20 tablet) aspirin 325 mg tablet 325 mg PO DAILY 09/18/22 omeprazole 40 mg capsule,delayed 40 mg PO DAILY 04/01/23 release Current Visit Medications: Current Medications Generic Name Dose Route Start Last Admin Trade Name Freq PRN Reason Stop Dose Admin Ringer's Solution 1,000 mls @ 80 mls/hr 04/24/23 06:00 04/24/23 08:33 IV 04/24/23 16:00 80 mls/hr INFUSION THOMAS Administration IV Miscellaneous Supplies 1 each 04/24/23 06:00 Iv Access IV 04/24/23 16:00 DIRECTED THOMAS Ondansetron HCl 4 mg 04/24/23 08:19 Ondansetron 4 Mg/2 Ml Vial IVP 05/24/23 08:18 Q4H PRN PRN Nausea / Vomiting Sodium Chloride 0 ml 04/24/23 06:00 Normal Saline Flush 10 Ml Syr IV 04/24/23 16:00 PRN PRN Sodium Chloride 0 ml 04/24/23 06:00 Normal Saline 10 Ml Vial IJ 04/24/23 16:00 DIRECTED PRN Sterile Water 0 ml 04/24/23 06:00 Water,Injection,Sterile 10 Ml Vial IJ 04/24/23 16:00 DIRECTED PRN PFSH Active Problems Active Problems: Problem Status Onset Code Impingement syndrome of right shoulder M75.41 Tendinitis of long head of biceps brachii of right shoulder M75.21 History of aortic valve replacement with bioprosthetic valve Z95.3 Fracture of greater tuberosity of right humerus S42.251A Bursitis of right shoulder M75.51 Traumatic tear of right rotator cuff S46.011A Arthritis of right acromioclavicular joint M19.011 Hypertension I10 Hyperlipidemia E78.5 Anxiety F41.9 GERD (gastroesophageal reflux disease) K21.9 Medical History Medical History Cancer of cervix Chest pain Per pt. f/u with cards (last time was 04/01/23) COPD (chronic obstructive pulmonary disease) Hypothyroidism Surgical History Surgical History H/O aortic valve replacement H/O: hysterectomy History of arthroscopy of left shoulder History of carpal tunnel surgery (right) Tobacco Smoking/Tobacco Use Status: Former Tobacco Use Alcohol Alcohol Intake: current Alcohol intake frequency: a few times a week Alcohol type: wine Substance Use Substance use: Never Substance use type: does not use Vital Signs and Lab Results Vital Signs Most Recent Vital Signs in EMR: Most Recent Vital Signs Temp Pulse Resp BP Pulse Ox 36.5 C 68 16 151/73 H 100 04/24/23 08:20 04/24/23 08:20 04/24/23 08:20 04/24/23 08:20 04/24/23 08:20 Lab Results Blood Type / Crossmatch: No Data to Display Complete Blood Count: No Data to Display Complete Metabolic Panel: No Data to Display Liver Function Panel: No Data to Display Coagulation Panel: No Data to Display Cardiac Panel: No Data to Display Arterial Blood Gas: No Data to Display Venous Blood Gas: No Data to Display Pancreas Panel: No Data to Display Thyroid Panel: No Data to Display Infectious Disease: No Data to Display Blood Cultures: No Data to Display Toxicology Panel: No Data to Display Imaging and Studies Imaging and Studies Study information below may be from another EMR and interpreted by another provider. Please see original notes in EMR for more complete details. Echocardiogram Summary: Conclusion Normal left ventricular wall thickness and chamber size. Ejection fraction is 55%. Wall motion is normal Normal right ventricular size and systolic function Both atria are normal in size There is a bioprosthetic aortic valve. Gradients are appropriate. There is no aortic regurgitation Thickened mitral leaflets with mild to moderate eccentric mitral regurgitation Normal tricuspid valve with moderate regurgitation. Estimated right ventricular systolic pressure is 30 mmHg Mildly dilated ascending aorta 3.89 cm the 03/26/23 Anesthesia Assessment and Plan Anesthesia History Personal History: No History of Anesthesia Complications Family History: No Family History of Anesthesia Complications Exercise Tolerance Exercise Tolerance: Metabolic Equivalents<4 Pertinent Negatives Pertinent Negatives: No Major Cardiovascular Symptoms or Complaints, No Major Pulmonary Symptoms or Complaints and No History of CVA/TIA Cardiac & Pulmonary Exam Cardiac Exam: Normal S1/S2 Heart Sounds Pulmonary Exam: Clear Bilateral Breath Sounds Implantable Cardiac Device Does patient have a Pacemaker or an ICD?: No Airway Exam Known Difficult Airway: No Mallampati Class: 4 Mouth Opening: Normal (> 3cm) Thyromental Distance: Greater than 3 cm Neck Range of Motion: Full ROM Neck Circumference: Normal Teeth Condition: Normal Dentition and Other (partial left at home) ASA Classification ASA Score: ASA 3 Emergency Case?: No NPO Status NPO Status: NPO Clears >2 hours, Solids >8 hours Anesthesia Plan Resuscitation Status: Full Code Anesthesia Technique: General Anesthesia Airway Planned: Natural Airway Monitors Used: Standard Monitors
[2023-04-24 08:40] VITALS: BMI 25.7
--- NOTE | 2023-04-24 09:01 | W.PM.DSUDISC ---
Date of service: 04/24/23 Time of Service: 10:48 Discharge Plan Disposition Patient Disposition: Home Condition: Stable Discharge Details Reason For Visit: GERD, dysphagia, globus sensation Attending Provider: Carol Conway Primary Care Provider: Sabina Chavez Home Meds and New Rx's Prescriptions: New omeprazole 40 mg capsule,delayed release(DR/EC) 40 mg PO BID Qty: 60 0RF Continued Anoro Ellipta 62.5-25 mcg/actuation blister with device 1 inh IH DAILY multivitamin [Daily Multi-Vitamin] Tablet 1 tab PO DAILY indomethacin 25 MG capsule 25 mg PO PRN propranolol 10 MG tablet 10 mg PO BID levothyroxine [Synthroid] 50 MCG tablet 50 mcg PO DAILY hydroxyzine HCl 25 MG tablet 25 mg PO Q 8 HR PRN aspirin 325 mg tablet 325 mg PO DAILY amitriptyline 25 MG tablet 2 tab PO HS Patient Comments: 11/07/15 Pt takes 50mg now. [facility] amoxicillin 500 MG capsule 4 tab PO .PRIOR TO DENTIST acetaminophen [Tylenol] 325 MG tablet 650 mg PO Q6H PRN PRNQty: 0 0RF ibuprofen [Advil] 200 MG tablet 2 tab PO TID PRN PRNQty: 0 0RF Discontinued omeprazole 40 mg capsule,delayed release(DR/EC) 40 mg PO DAILY Discharge Instructions Instructions: Gastritis (DC), Diet for Stomach Ulcers and Gastritis (ED) Additional Instructions: Findings: 1. Inflammation of the stomach 2. There was some scar tissue in the upper esophagus Follow up: 2 weeks Please call if you develop: fevers >101.5 Nausea or Vomiting Abdominal pain that is not transient Rectal bleeding that is more then a tbsp A hard abdomen and inability to pass gas DAY SURGERY UNIT POST ENDOSCOPY INSTRUCTIONS Instructions for everyone who is given Anesthesia: For your safety, please do the following for the next 24 Hours: a. Do not drive or operate dangerous equipment b. Do not drink alcohol beverages or use any recreational drugs for the first 24 hours or while taking pain medications. The medications in your body may have a reaction that can be dangerous. c. Do not make any important decisions or sign any important papers 1. Generally there are no restrictions on your activity after a day or so has gone by, but you may feel a bit fatigued for a few days. 2. After you arrive home you may have a light meal and return to a normal diet as you can tolerate it without feeling sick to your stomach. 3. After surgery, you may feel pain or discomfort. This should be only transient, but if it persists please contact your doctor. 4. If there are any questions regarding the findings of your procedure, please feel free to contact your doctor. 6. If you are unable to contact your doctor with a problem, contact the hospital at [phone]. 7. Continue all your regular medications unless directed otherwise. I understand the above instructions and have no questions. Signature of Patient or Responsible Adult Escort Date/Time Name of Responsible Adult Escort Signature of Nurse Date/Time Referrals: Carol Conway MD [ [facility] ST[facility]FF PHYSICIAN] - Activity:: Activity as Tolerated Diet:: low acid Discharge Orders Discharge Orders: Discharge Order (Routine); Ordered 04/24/23 Ordered By: Carol Conway DS: Diagnosis Discharge Diagnosis (1) GERD (gastroesophageal reflux disease): Status: Chronic Asessment and Plan: Patient is seen and examined after their endoscopy. Patient has minimal sore throat. She did have some abdominal pain when she first got back to [facility]. Abdomen was soft. She was give Simethicone 80 mg which helped her pain. They have been able to tolerate liquids. They do not have any Nausea or Vomiting. They are not having any chest pain or shortness of breath. They have been able to pass gas and was no longer having any abdominal pain or distention. they have not vomited any blood. The vital signs have been stable-see nursing notes. We discussed findings on their endoscopy We reviewed the importance of lifestyle modifications- see diet recommendations We reviewed any new medications that the patient may be prescribed- see medicine reconciliation. Patient will either be sent a letter with the biopsy results or follow up in the office- see discharge instructions Patient was given explicit instructions for emergency follow up post endoscopy- see discharge instructions Patient verbalized understanding and was discharged in stable and satisfactory condition. See nursing notes.
--- NOTE | 2023-04-24 09:16 | STOM_PTH ---
PATIENT: Renée Adan LOC: [facility] U#:[id number] AGE/SX: 67/F ROOM: RE04/24/[address]: Carol Conway MD : [id number] BED: DIS: 04/24/2023 SPEC #: [id number] RECD: 04/25/23 16:37 STATUS: HARJINDER RE #: [id number] KEN: 04/24/23 09:[address]: Carol Conway DEPT: Surgical Specimen RECD BY: Stefania Morrison ENTERED: 04/25/23 16:42 SP TYPE: STOMACH OTHR DR: Sabina Chavez Tissues: 1 - STOMACH BIOPSY 2 - STOMACH BIOPSY 3 - ESOPHAGUS BIOPSY 4 - ESOPHAGUS BIOPSY Procedures: GROSS AND MICRO LEVEL 4 Comments: [id number]
[2023-04-24 09:27] VITALS: BP 174/79; PULSE 67; RESP 16; TEMP 36.3; O2SAT 96
[2023-04-24] MEDS: Simethicone 80 MG CHEW PO (09:53)
[2023-04-24 09:54] VITALS: BP 162/78; PULSE 58; RESP 18; TEMP 36.5; O2SAT 98
[2023-04-24 10:27] VITALS: BP 140/68; PULSE 57; RESP 16; TEMP 36.5; O2SAT 97
--- NOTE | 2023-04-24 18:05 | W.ANESPOSTOP ---
Postoperative Evaluation Date, Time and Location Date Performed: 04/24/23 Time Performed: 18:05 Patient Location: Day Surgery Unit Vital Signs Most Recent Imported Vital Signs: Most Recent Vital Signs Temp Pulse Resp BP Pulse Ox 36.5 C 57 L 16 140/68 97 04/24/23 10:27 04/24/23 10:27 04/24/23 10:27 04/24/23 10:27 04/24/23 10:27 Pain Score Most Recent Pain Score: Most Recent Pain Score Pain Level [Left Upper Abdomen 3 04/24/23 10:14 ] Pain Level 1 04/24/23 10:27 Assessment Mental Status: Awake (Alert & Oriented to Patient Baseline) Airway and Respiratory Function: Patent airway with normal (patient baseline) respiratory exam Cardiovascular Function: Hemodynamically Stable Hydration Status: Adequately Hydrated Nausea & Vomiting: No Nausea or Vomiting Pain: Pt. Denies Any Pain Peripheral Nerve Block: Patient did not receive a nerve block
== END 2023-04-24 11:10 | disposition home or self-care (01) ==
PROVIDERS: PCP Family Medicine; Visit Provider Surgery
PROC: 0DJ68ZZ Inspection of Stomach, Via Natural or Artificial Opening Endoscopic (ICD-10-PCS; CPT 43235; principal; 2023-04-24 09:30)
DX: K21.9 Gastro-esophageal reflux disease without esophagitis (principal); K22.89 Other specified disease of esophagus; K29.70 Gastritis, unspecified, without bleeding
CPT/HCPCS: 43239; 88305; J2001

== ENCOUNTER → 2023-05-07 08:28 | Outpatient (BNVA) | payer MEDICARE, SELFPAY | PROVIDERS: PCP Family Medicine; Referring Provider Family Medicine; Visit Provider Surgery | DX: Z48.815 Encounter for surgical aftercare following surgery on the digestive system (principal); R10.9 Unspecified abdominal pain | CPT/HCPCS: 99212; 99213 ==

== ENCOUNTER → 2023-05-21 00:35 | Outpatient (CLI) | payer MEDICARE, SELFPAY ==
--- NOTE | 2023-05-21 07:45 | DI.US_ITS ---
Exam(s) US ABDOMEN EXAM: US ABDOMEN CLINICAL HISTORY: abdominal pain after eating,r10.9 TECHNIQUE: Ultrasound abdomen performed using standard protocol. COMPARISON: CT ABD PELVIS WITH CONTRAST from 04/03/2014 FINDINGS: LIVER: Normal size. Increased echogenicity 6 consistent with moderate hepatic steatosis. No focal l iver lesions are seen. GALLBLADDER: 1.7 centimeter mobile gallstone. No evidence of wall thickening. No pericholecystic flu id identified. SMITH'S SIGN: Negative. BILIARY SYSTEM: No intrahepatic or extrahepatic biliary ductal dilation. KIDNEYS: Kidneys are symmetric in size. No evidence of renal calculi. No evidence of hydronephrosis. 1.5 centimeter cyst upper pole right kidney. Stable from prior CT. No follow-up recommended. No s uspicious renal mass identified. PANCREAS: Normal where visualized. SPLEEN: Not enlarged. ABDOMINAL AORTA AND IVC: Visualized portions normal caliber. ASCITES: None seen. IMPRESSION: Single large mobile gallstone. Hepatic steatosis. DATA REPOSITORY:
== END ==
PROVIDERS: PCP Family Medicine; Visit Provider Surgery
DX: K76.0 Fatty (change of) liver, not elsewhere classified; K80.20 Calculus of gallbladder without cholecystitis without obstruction
CPT/HCPCS: 76700

== ENCOUNTER → 2023-05-24 08:29 | Outpatient (BNVA) | payer MEDICARE, SELFPAY | PROVIDERS: PCP Family Medicine; Referring Provider Family Medicine; Visit Provider Surgery | DX: K80.50 Calculus of bile duct without cholangitis or cholecystitis without obstruction (principal) | CPT/HCPCS: 99212; 99213 ==

== ENCOUNTER 2023-06-12 06:04 | Day surgery (SDC) | payer MEDICARE, SELFPAY ==
[2023-06-12] VITALS (11 sets, daily range): BP systolic 100–137; BP diastolic 45–81; PULSE 53–68; RESP 12–18; TEMP 36–36.6; O2SAT 92–100; BMI 25.2
--- NOTE | 2023-06-12 06:29 | W.PM.PROGNOT ---
Date of Service Date of service: 06/12/23 Time of Service: 07:21 Assessment and Plan Assessment and plan (1) Biliary colic: Status: Acute Assessment and plan: ?I saw Ms Adan in [facility] today, prior to her surgery. I reviewed the surgery with them in detail using a pamphlet as well as the possible risks, benefits and complications.? After our discussion the patient and her had a good understanding of both the surgery and its possible complications and had no other questions.? They wanted to proceed with surgery.? Risks, benefits, complications were reviewed with the patient in the office.? Complications include but are not limited to bleeding, infection, injury to stomach, small bowel and large bowel, injury to the pancreas, injury to the common bile duct necessitating drainage and referral to tertiary center for repair, bile leak, adverse reactions to the medications, complications of intubation including a sore throat or injury to the uvula, [place], stroke and even .? Questions were entertained and answered to her satisfaction and she wished to proceed.? No guarantees were given or implied. Subjective Subjective Interval history since last seen: Ms Adan is doing well today. She is nervous. I reviewed the plan of Laparoscopic Cholecystectomy wither her. She has had no new symptoms. She has no questions about the procedure or the possible Complications Exam Const General: cooperative, comfortable and no acute distress Orientation: alert and oriented x3 HENMT Head: normocephalic and atraumatic Resp Effort & Inspection: normal respiratory effort Time Spent with Patient Time Spent with Patient: <25 minutes Time was spent: counseling the patient
--- NOTE | 2023-06-12 06:29 | W.PM.OP ---
Date of service: 06/12/23 Time of Service: 08:30 Operative Note Operative Note DATE OF PROCEDURE: 06/12/23 PRE-OP DIAGNOSIS: Biliary Colic POST-OP DIAGNOSIS: same PROCEDURE: Laparoscopic Cholecystectomy SURGEON: Carol Conway CLOTH STOCK SORTER: Rubina Landa ANESTHESIA TYPE: General:No Airway Refer to Anesthesia Record ESTIMATED BLOOD LOSS: 25 PATHOLOGY: other (Gallbladder) COMPLICATIONS: None Patient was transported to: PACU Patient's condition: stable Indications: ?I suspect that her postprandial pain is due to this gallbladder stone getting stuck in the neck of the gallbladder.? I reviewed the surgery with them in detail using a pamphlet as well as the possible risks, benefits and complications.? After our discussion the patient and her had a good understanding of both the surgery and its possible complications and had no other questions.? They wanted to proceed with surgery.? Risks, benefits, complications were reviewed with the patient in the office.? Complications include but are not limited to bleeding, infection, injury to stomach, small bowel and large bowel, injury to the pancreas, injury to the common bile duct necessitating drainage and referral to tertiary center for repair, bile leak, adverse reactions to the medications, complications of intubation including a sore throat or injury to the uvula, [place], stroke and even .? Questions were entertained and answered to her satisfaction and she wished to proceed.? No guarantees were given or implied. Findings: one larger stone in the neck. Minimal inflammation Liver looks cirrhotic Procedure Description: After informed consent was obtained the patient was brought to the operating room, placed in a supine position and monitors were applied. SCDs were applied to her lower extremities and she was placed under general anesthesia and intubated without difficulty. Her abdomen was then prepped and draped in a sterile fashion using ChloraPrep. At this point a timeout was done and the patient's name, date of , procedure type, allergies to medications, metal in her body, antibiotic and DVT prophylaxis, and fire risk was assessed. At this point 0.25% Bupivocaine was injected just below the umbilicus into the dermis and subcutaneous tissue. A 5 mm incision was made with an 11 blade. The fascia was grasped with cockers. The fascia was opened sharply with an 11 blade and a 5 mm port was placed under direct visualization. The abdomen was insuflated and then 3 more ports were placed. A 12 mm port was placed in the subxiphoid area and two 5 mm ports were placed in the right upper quadrant. The liver was inspected and looked normal. The patient's bed was then turned to the left and her head was brought up. The gallbladder was grasped at the body and pushed towards the right shoulder, this allowed me to visualize the neck of the gallbladder. The neck was grasped and pulled towards the right flank and down allowing me to visualize the lymph node. Using cautery the fatty tissue was also dissected away. The cystic duct was identified it was normal in size. The duct was dissected 360 degrees using the [place] dissector in order for me to visualize its entrance into the gallbladder. Liver was noted behind it. There were no other structures right behind. Critical view was achieved. 3 clips were placed one proximal and 2 distal and the cystic duct was cut. The cystic artery was then identified and dissected 360 degrees. It was located on top of the cystic duct. It was visualized going into the gallbladder. Once dissected 3 more clips were placed one proximal and 2 distal and the artery was cut. Using the hook dissector the gallbladder was then dissected away from the liver bed and placed into an Endo Catch bag and pulled through the 12 mm port site. The 12 mm port was placed back into the abdomen under direct visualization. The liver bed was inspected and some bleeding was noted. The bleeding was stopped using cautery and surgicel. A raytech was placed into the abdomen and pressure was applied. The surgicel was removed as well as the raytech. The abdomen was then irrigated with a liter of normal saline until the effluent was clear. Once all the fluid was suctioned out, the 12 mm and the 2 right upper quadrant ports were removed under direct visualization and no bleeding was noted from the fascia. The abdomen was deflated completely and lastly the umbilical port was removed. The skin was cleaned. The subxiphoid incision was closed using 0 Vicryl. The dermis on all the incisions were closed with 4-0 Vicryl. The skin was dried and skin affix was applied over the closed incisions. Needle, instrument and sponge counts were correct at the end of the case. At this point the patient was woken up, extubated and taken back to recovery in stable condition. There were no immediate complications.
--- NOTE | 2023-06-12 06:36 | PDOC.DSDIS_ITS ---
Date of service: 06/12/23 Time of Service: 08:27 Discharge Plan Disposition Patient Disposition: Home Condition: Stable Discharge Details Reason For Visit: Biliary Colic Attending Provider: Carol Conway Primary Care Provider: Sabina Chavez Home Meds and New Rx's Prescriptions: New tramadol 50 mg tablet 50 mg PO Q6H PRNQty: 14 0RF Continued Anoro Ellipta 62.5-25 mcg/actuation blister with device 1 inh IH DAILY indomethacin 25 MG capsule 25 mg PO PRN propranolol 10 MG tablet 10 mg PO BID levothyroxine [Synthroid] 50 MCG tablet 50 mcg PO DAILY hydroxyzine HCl 25 MG tablet 25 mg PO Q 8 HR PRN aspirin 325 mg tablet 325 mg PO DAILY amitriptyline 25 MG tablet 2 tab PO HS Patient Comments: 11/07/15 Pt takes 50mg now. [facility] amoxicillin 500 MG capsule 4 tab PO .PRIOR TO DENTIST acetaminophen [Tylenol] 325 MG tablet 650 mg PO Q6H PRN PRNQty: 0 0RF ibuprofen [Advil] 200 MG tablet 2 tab PO TID PRN PRNQty: 0 0RF omeprazole 40 mg capsule,delayed release(DR/EC) 40 mg PO BID Qty: 60 0RF Discharge Instructions Instructions: Low Fat Diet (DC), Laparoscopic Cholecystectomy (DC) Additional Instructions: Activity at Home after surgery: 1. Make sure you walk outside at least 4 times per day 2. You should be able to climb a flight of stairs 3. No driving while in pain or taking pain medications 4. No strenuous activity or heavy lifting (no more then 10 lb)for 2 weeks Diet, Nutrition, & wound healin. Avoid alcohol until after you are recovered from your surgery 2. Make sure to eat plenty of lean protein (meat, fish, eggs, cottage cheese, beans) 3. Eat a variety of fruits and vegetables. Eat plenty of high fiber foods to avoid constipation. 4. Drink plenty of liquids to stay hydrated and avoid constipation Pain Medications: 1. Tylenol 650mg every 6 hours as needed and Ibuprofen 600 mg every 6 hours as needed. You may alternate between the 2 medications every 3 hours 2. If a narcotic has been prescribed take as directed only for breakthrough pain For Constipation: 1. Take Milk of Magnesia or MiraLax as needed for constipation Other: 1. You may shower daily. Do not scrub the incisions 2. Do not soak the incisions for 1 week 3. You may alternate ice and heat as needed for pain and swelling Wound Care: 1. Keep the incisions clean and dry Please call our office if you develop: 1. Fevers >101.5 2. Nausea or Vomiting 3. Worsening pain 4. Redness and thick discharge from the wounds If after hours please call the Hospital at and ask to speak to the on-call surgeon Referrals: Carol Conway MD [ [facility] STAFF PHYSICIAN] - Activity:: see above Shower/Bathe:: 24 hours Diet:: low fat x 2 weeks Discharge Orders Discharge Orders: Discharge Order (Routine); Ordered 06/12/23 Ordered By: Carol Conway DS: Diagnosis Discharge Diagnosis (1) Biliary colic: Status: Acute Asessment and Plan: The patient is doing well post-op from their Laparoscopic Chelecystectomy.? She is having no nausea or vomiting. She is tolerating liquids and a snack. The pt is not having any chest pain or SOB.? Their pain is adequately controlled. They have been able to urinate.? ?HEENT:? no eye pain/drainage/redness/swelling. Mild sore throat ?Cardio- NSR, no chest pain, BP stable- see VS record ?Pulm: no sob or productive cough. No hemoptysis ?Incision- dressing is c/d/i w/ no excessive bleeding or drainage ?I discussed with the patient the findings at the time of surgery and the patient?s progress. ?We reviewed expectations at home; what the patient could expect for recovery time, and in the post-operative period.? We discussed the importance of walking to avoid blood clots and pneumonia.? We discussed and reviewed the patient's post-operative wound care and dressing needs.?? We reviewed their step-baugh pain management plan, Rx called to the pharmacy of their choice.? We reviewed activity and limitations-see discharge instructions. We reviewed warning signs, and when to seek medical attention- see d/c instructions.?? Patient was given a postoperative follow-up appointment. Patient verbalized understanding of their postoperative instructions, how do to take care of themselves and their incision, and the pain management plan. Please see discharge instructions.?
[2023-06-12] MEDS: Acetaminophen 500 MG TAB 1000 MG PO (06:44)
[2023-06-12] MEDS: Gabapentin 300 MG CAP 600 MG PO (06:45)
[2023-06-12] MEDS: Celecoxib 200 MG CAP PO (06:45)
[2023-06-12] MEDS: Lactated Ringers 1,000 ML 80 ML IV (06:45)
--- NOTE | 2023-06-12 07:10 | W.ANESPRE ---
General Info Date of Service Date Performed: 06/12/23 Height: 5 ft Weight: 58.6 kg Body Mass Index (BMI): 25.2 Surgical Procedure: Operation Date: 06/12/23 07:40 Proposed Procedure Side Surgeon p Cholecystectomy Laparoscopic Carol Conway MD Meds Allergies and Home Medications Allergies Allergy/AdvReac Type Severity Reaction Status Date / Time morphine Allergy Intermediate Hives Verified 06/12/23 06:29 topiramate [From Topamax] Allergy Mild Verified 06/12/23 06:29 codeine AdvReac Severe N&V Verified 06/12/23 06:29 Home Medication Medication Instructions Recorded amitriptyline 25 mg tablet 2 tab PO HS 04/03/14 indomethacin 25 mg capsule 25 mg PO PRN 07/27/15 hydroxyzine HCl 25 mg tablet 25 mg PO Q 8 HR PRN 01/03/16 levothyroxine 50 mcg tablet 50 mcg PO DAILY 01/03/16 (Synthroid) propranolol 10 mg tablet 10 mg PO BID 01/03/16 amoxicillin 500 mg capsule 4 tab PO .PRIOR TO DENTIST 05/21/16 acetaminophen 325 mg tablet 650 mg PO Q6H PRN PRN ##0 05/29/16 (Tylenol) ibuprofen 200 mg tablet (Advil) 2 tab PO TID PRN PRN ##0 05/29/16 umeclidinium 62.5 mcg-vilanterol 1 inh inhalation DAILY 05/05/20 25 mcg/actuation powdr for inhalation (Anoro Ellipta) aspirin 325 mg tablet 325 mg PO DAILY 09/18/22 omeprazole 40 mg capsule,delayed 40 mg PO BID #60 caps 04/24/23 release Current Visit Medications: Current Medications Generic Name Dose Route Start Last Admin Trade Name Freq PRN Reason Stop Dose Admin Acetaminophen 1,000 mg 06/12/23 06:00 06/12/23 06:44 Acetaminophen 500 Mg Tab PO 07/11/23 23:59 1,000 mg PREOP THOMAS Administration Celecoxib 200 mg 06/12/23 06:00 06/12/23 06:45 Celecoxib 200 Mg Cap PO 07/11/23 23:59 200 mg PREOP THOMAS Administration Gabapentin 600 mg 06/12/23 06:00 06/12/23 06:45 Gabapentin 300 Mg Cap PO 07/11/23 23:59 600 mg PREOP THOMAS Administration Ringer's Solution 1,000 mls @ 80 mls/hr 06/12/23 06:00 06/12/23 06:45 IV 07/11/23 23:59 80 mls/hr [facility] Administration Ampicillin Sodium/Sulbactam 100 mls @ 200 mls/hr 06/12/23 06:00 Sodium 3 gm/ Sodium Chloride IVPB 06/12/23 18:00 PREOP THOMAS Ondansetron HCl 4 mg/ Sodium 52 mls @ 200 mls/hr 06/12/23 06:37 Chloride IVPB 07/12/23 06:36 Q6H PRN PRN IV Miscellaneous Supplies 1 each 06/12/23 06:00 Iv Access IV 07/11/23 23:59 DIRECTED THOMAS Ibuprofen 600 mg 06/12/23 06:37 Ibuprofen 600 Mg Tab PO 07/12/23 06:36 Q6H PRN PRN Pain Sodium Chloride 0 ml 06/12/23 06:00 Normal Saline Flush 10 Ml Syr IV 07/11/23 23:59 PRN PRN Sodium Chloride 0 ml 06/12/23 06:00 Normal Saline 10 Ml Vial IJ 07/11/23 23:59 DIRECTED PRN Sterile Water 0 ml 06/12/23 06:00 Water,Injection,Sterile 10 Ml Vial IJ 07/11/23 23:59 DIRECTED PRN Tramadol HCl 50 mg 06/12/23 06:37 Tramadol 50 Mg Tab PO 07/12/23 06:36 Q6H PRN PRN Pain PFSH Active Problems Active Problems: Problem Status Onset Code Impingement syndrome of right shoulder M75.41 Tendinitis of long head of biceps brachii of right shoulder M75.21 History of aortic valve replacement with bioprosthetic valve Z95.3 Fracture of greater tuberosity of right humerus S42.251A Bursitis of right shoulder M75.51 Traumatic tear of right rotator cuff S46.011A Arthritis of right acromioclavicular joint M19.011 Hypertension I10 Hyperlipidemia E78.5 Anxiety F41.9 GERD (gastroesophageal reflux disease) K21.9 Abdominal pain R10.9 Biliary colic K80.50 Medical History Medical History Cancer of cervix Chest pain Per pt. f/u with cards (last time was 04/01/23) COPD (chronic obstructive pulmonary disease) Hypothyroidism Surgical History Surgical History H/O aortic valve replacement 2014 H/O: hysterectomy History of arthroscopy of left shoulder History of carpal tunnel surgery (right) History of esophagogastroduodenoscopy (~04/2023) Tobacco Smoking/Tobacco Use Status: Former Tobacco Use Alcohol Alcohol Intake: current Alcohol intake frequency: a few times a week Alcohol type: wine Substance Use Substance use: Never Substance use type: does not use Vital Signs and Lab Results Vital Signs Most Recent Vital Signs in EMR: Most Recent Vital Signs Temp Pulse Resp BP Pulse Ox 36.4 C L 68 18 126/77 99 06/12/23 06:15 06/12/23 06:15 06/12/23 06:15 06/12/23 06:15 06/12/23 06:15 Lab Results Blood Type / Crossmatch: No Data to Display Complete Blood Count: No Data to Display Complete Metabolic Panel: No Data to Display Liver Function Panel: No Data to Display Coagulation Panel: No Data to Display Cardiac Panel: No Data to Display Arterial Blood Gas: No Data to Display Venous Blood Gas: No Data to Display Pancreas Panel: No Data to Display Thyroid Panel: No Data to Display Infectious Disease: No Data to Display Blood Cultures: No Data to Display Toxicology Panel: No Data to Display Imaging and Studies Imaging and Studies Study information below may be from another EMR and interpreted by another provider. Please see original notes in EMR for more complete details. EKG Summary: Conclusion Sinus rhythm...normal P axis, V-rate 50- 99 Abnormal R-wave progression, early transition...QRS area>[address] depression, lateral leads...ST <-0.04mV, I aVL V5 V6 10/02/22 Echocardiogram Summary: Conclusion Normal left ventricular wall thickness and chamber size. Ejection fraction is 55%. Wall motion is normal Normal right ventricular size and systolic function Both atria are normal in size There is a bioprosthetic aortic valve. Gradients are appropriate. There is no aortic regurgitation Thickened mitral leaflets with mild to moderate eccentric mitral regurgitation Normal tricuspid valve with moderate regurgitation. Estimated right ventricular systolic pressure is 30 mmHg Mildly dilated ascending aorta 3.89 cm the 03/26/23 Anesthesia Assessment and Plan Anesthesia History Personal History: No History of Anesthesia Complications Family History: No Family History of Anesthesia Complications Exercise Tolerance Exercise Tolerance: Metabolic Equivalents<4 Pertinent Negatives Pertinent Negatives: No Major Cardiovascular Symptoms or Complaints, No Major Pulmonary Symptoms or Complaints and No History of CVA/TIA Cardiac & Pulmonary Exam Cardiac Exam: Normal S1/S2 Heart Sounds Pulmonary Exam: Clear Bilateral Breath Sounds Implantable Cardiac Device Does patient have a Pacemaker or an ICD?: No Airway Exam Known Difficult Airway: No Mallampati Class: 4 Mouth Opening: Normal (> 3cm) Thyromental Distance: Greater than 3 cm Neck Range of Motion: Full ROM Neck Circumference: Normal Teeth Condition: Normal Dentition and Other (partial left at home) ASA Classification ASA Score: ASA 3 Emergency Case?: No NPO Status NPO Status: NPO Clears >2 hours, Solids >8 hours and NPO Clear Liquids>2 hours Anesthesia Plan Resuscitation Status: Full Code Anesthesia Technique: General Anesthesia Airway Planned: Endotracheal Tube Monitors Used: Standard Monitors
[2023-06-12] MEDS: AMPICILLIN/SULBACTAM 3 GM in Normal Saline 100 ML IVPB (07:36)
[2023-06-12] MEDS: Bupivacaine 0.25% Pres-Free 30 ML VIAL (07:54)
--- NOTE | 2023-06-12 08:03 | GB_PTH ---
PATIENT: Renée Adan LOC: [facility] U#:[id number] AGE/SX: 67/F ROOM: RE06/12/[address]: Carol Conway MD : [id number] BED: DIS: 06/12/2023 SPEC #: [id number] RECD: 06/12/23 12:25 STATUS: HARJINDER REQ #: [id number] KEN: 06/12/23 08:[address]: Carol Conway DEPT: Surgical Specimen RECD BY: Imelda Cramer ENTERED: 06/12/23 12:25 SP TYPE: GB OTHR DR: Sabina Chavez Tissues: 1 - GALLBLADDER Procedures: GROSS AND MICRO LEVEL 3 Comments: [id number]
[2023-06-12] MEDS: Cellulose,Oxidized 4X8 1 PACKET MC (08:12)
[2023-06-12] MEDS: fentaNYL 100 MCG/2 ML VIAL IVP (09:14)
--- NOTE | 2023-06-12 10:07 | W.ANESPOSTOP ---
Postoperative Evaluation Date, Time and Location Date Performed: 06/12/23 Time Performed: 10:07 Patient Location: Day Surgery Unit Vital Signs Most Recent Imported Vital Signs: Most Recent Vital Signs Temp Pulse Resp BP Pulse Ox 36.6 C 53 L 14 115/45 L 96 06/12/23 09:40 06/12/23 09:40 06/12/23 09:40 06/12/23 09:40 06/12/23 09:40 Pain Score Most Recent Pain Score: Most Recent Pain Score Pain Level 3 06/12/23 09:40 Assessment Mental Status: Awake (Alert & Oriented to Patient Baseline) Airway and Respiratory Function: Patent airway with normal (patient baseline) respiratory exam Cardiovascular Function: Hemodynamically Stable Hydration Status: Adequately Hydrated Nausea & Vomiting: No Nausea or Vomiting Pain: Pain is tolerable per patient Peripheral Nerve Block: Patient did not receive a nerve block
== END 2023-06-12 12:15 | disposition home or self-care (01) ==
PROVIDERS: PCP Family Medicine; Visit Provider Surgery
PROC: 0FT44ZZ Resection of Gallbladder, Percutaneous Endoscopic Approach (ICD-10-PCS; CPT 47562; principal; 2023-06-12 07:30)
DX: K80.20 Calculus of gallbladder without cholecystitis without obstruction (principal); I10 Essential (primary) hypertension; K21.9 Gastro-esophageal reflux disease without esophagitis; E78.5 Hyperlipidemia, unspecified
CPT/HCPCS: 47562; 88304; J0295; J1100; J1885; J2001; J2405; J2704; J3010

== ENCOUNTER → 2023-07-01 08:28 | Outpatient (BNVA) | payer MEDICARE, SELFPAY | PROVIDERS: PCP Family Medicine; Referring Provider Family Medicine; Visit Provider Surgery | DX: Z48.815 Encounter for surgical aftercare following surgery on the digestive system (principal); Z90.49 Acquired absence of other specified parts of digestive tract ==

== ENCOUNTER → 2024-05-26 09:29 | Outpatient (BNVA) | payer MEDICARE, SELFPAY | PROVIDERS: PCP Family Medicine; Referring Provider Family Medicine; Visit Provider Internal Medicine Cardiovascular Disease | DX: Z95.2 Presence of prosthetic heart valve (principal) | CPT/HCPCS: 99213 ==

== ENCOUNTER 2024-10-09 19:16 | Emergency (ER) | payer MEDICARE, SELFPAY ==
[2024-10-09] VITALS (33 sets, daily range): BP systolic 119–149; BP diastolic 68–117; PULSE 93–102; RESP 9–32; TEMP 36.9–37.2; O2SAT 92–99
--- NOTE | 2024-10-09 19:15 | RT.EKG_ITS ---
APPROVED REPORT Exam: Resting ECG Reason for Exam: ams Patient Location: E HR:95 bpm ECG Measurements Heart Rate 95 AXIS MO 220 P 51 QRSd 87 QRS -4 QT 375 T 69 QTc 472 Conclusion Sinus rhythm...normal P axis, V-rate 60- 99 Prolonged MO interval...MO >215, V-rate 91-120 Probable left atrial enlargement...P >50mS, <-0.10mV V1 Borderline ST depression, anterolateral leads...ST <-0.07mV, I aVL V2-V6 No STEMI
[2024-10-09] MEDS: Albuterol/Ipratropium 3 ML UPD VIAL UPD (19:39)
[2024-10-09 19:45] LABS: Abs Immature Grans 0.09 10^3/uL (0.0-0.06); Absolute Basophil Count 0.06 10^3/uL (0.0-0.2); Absolute Eosinophil Count 0.05 10^3/uL (0.0-0.7); Absolute Lymphocyte Count 1.34 10^3/uL (1.2-3.4); Absolute Monocyte Count 1.53 10^3/uL (0.1-0.8); Absolute Neutrophil Count 6.51 10^3/uL (1.2-6.7); Basophils % 0.6 %; Eosinophils % 0.5 %; HCT 35.8 % (36.0-46.0); Immature Grans % 0.9 %; MCH 35.6 pg (27.0-33.0); MCHC 33.5 % (32.0-36.0); MCV 106 fL (80-95); MPV 9.5 fL (8.0-11.0); Nucleated RBC 0.2 % (0.0-0.3); Platelet Count 142 10^3/uL (130-400); RBC 3.37 10^6/uL (3.93-5.22); RDW 11.9 % (11.7-14.6); RDW-SD 46.9 fL; WBC 9.58 10^3/uL (4.4-10.8)
[2024-10-09] MEDS: methylPREDNISolone SUCC 125 MG VIAL IVP (19:55)
--- NOTE | 2024-10-09 19:56 | W.ED.GENAD ---
Discharge Plan Disposition Patient Disposition: Home Condition: Stable Discharge Details Clinical Impression: Elevated brain natriuretic peptide (BNP) level, Dyspnea Primary Care Provider: Sabina Chavez ED Provider: Adriana Vazquez Home Meds and New Rx's Prescriptions: Continued Anoro Ellipta 62.5-25 mcg/actuation blister with device 1 inh IH DAILY omeprazole 40 mg capsule,delayed release(DR/EC) 40 mg PO DAILY Qty: 30 5RF indomethacin 25 MG capsule 25 mg PO PRN propranolol 10 MG tablet 10 mg PO BID levothyroxine [Synthroid] 50 MCG tablet 50 mcg PO DAILY hydroxyzine HCl 25 MG tablet 25 mg PO Q 8 HR PRN aspirin 325 mg tablet 325 mg PO DAILY amitriptyline 25 MG tablet 2 tab PO HS Patient Comments: 11/07/15 Pt takes 50mg now. [facility] amoxicillin 500 MG capsule 4 tab PO .PRIOR TO DENTIST acetaminophen [Tylenol] 325 MG tablet 650 mg PO Q6H PRN PRNQty: 0 0RF ibuprofen [Advil] 200 MG tablet 2 tab PO TID PRN PRNQty: 0 0RF Discharge Instructions Instructions: Troponin Test, Shortness of Breath, Adult ED Additional Instructions: You did have an elevated BNP today this could explain some of your shortness of breath. It also appears you are dehydrated. I do recommend that you follow-up with your primary care early next week for repeat evaluation. Please return to the ER for any worsening fever, shortness of breath, chest pain dizziness lightheadedness or any concerns. Follow up with primary care provider in 3-5 days. Return to ED sooner if any worsening or concerns. Referrals: Sabina Chavez [Primary Care Provider] - 3 days HPI General Mode of arrival: EMS. Date/Time Provider Initiated Documentation: 10/09/24 19:26. Limitations to Documentation: no limitations. Information obtained by: patient, EMS, RN notes reviewed and old records reviewed. HPI Narrative: 69-year-old female with a past medical history of atrial valve replacement, COPD, hypothyroidism cervical cancer and hysterectomy presents feeling generally sick since Saturday, recently went to get the [employer] return on Saturday. Reports temp of 101.5, increased difficulty breathing, dizziness and chest tightness. On exam she does have pursed lip breathing, diminished lung sounds bilaterally. She reports that she is a former smoker. Related Data Home Medications ?Medication ?Instructions ?Recorded ?Confirmed amitriptyline 25 mg tablet 2 tab PO HS 04/03/14 10/09/24 indomethacin 25 mg capsule 25 mg PO PRN 07/27/15 10/09/24 hydroxyzine HCl 25 mg tablet 25 mg PO Q 8 HR PRN 01/03/16 10/09/24 levothyroxine 50 mcg tablet 50 mcg PO DAILY 01/03/16 10/09/24 (Synthroid) propranolol 10 mg tablet 10 mg PO BID 01/03/16 10/09/24 amoxicillin 500 mg capsule 4 tab PO .PRIOR TO DENTIST 05/21/16 10/09/24 acetaminophen 325 mg tablet 650 mg (2 x 325 mg) PO Q6H PRN PRN 05/29/16 10/09/24 (Tylenol) ##0 ibuprofen 200 mg tablet (Advil) 2 tab PO TID PRN PRN ##0 05/29/16 10/09/24 umeclidinium 62.5 mcg-vilanterol 1 inh inhalation DAILY 05/05/20 10/09/24 25 mcg/actuation powdr for inhalation (Anoro Ellipta) aspirin 325 mg tablet 325 mg PO DAILY 09/18/22 10/09/24 omeprazole 40 mg capsule,delayed 40 mg PO DAILY #30 caps 06/24/23 10/09/24 release Previous Rx's ?Medication ?Instructions ?Recorded acetaminophen 325 mg tablet 650 mg (2 x 325 mg) PO Q6H PRN PRN 05/29/16 (Tylenol) ##0 ibuprofen 200 mg tablet (Advil) 2 tab PO TID PRN PRN ##0 05/29/16 omeprazole 40 mg capsule,delayed 40 mg PO DAILY #30 caps 06/24/23 release Allergies Allergy/AdvReac Type Severity Reaction Status Date / Time morphine Allergy Intermediate Hives Verified 10/09/24 19:49 topiramate (From Topamax) Allergy Mild Unknown Verified 10/09/24 19:49 codeine AdvReac Severe N&V Verified 10/09/24 19:49 General Stated Complaint: SOB RAMIRO: 3 Review of Systems All systems reviewed & are unremarkable except as noted in HPI and below Constitutional Constitutional: Reports as per HPI Cardiovascular Cardiovascular: Reports dyspnea Respiratory Respiratory: Reports dyspnea Exam Narrative Exam Narrative: Constitutional: Alert and oriented x3. Appears stated age. Normal body habitus. Head: Normocephalic, no trauma. Eyes: Pupils PERRL, Red reflex noted, EOM's intact. Eyelids symmetrical without lesions, discharge, or swelling. ENT: Bilateral TM's WNL, External ear normal to inspection, no mastoid TTP, swelling, or erythema, Nasal turbinates WNL, no nasal discharge. Normal dentition, Posterior pharynx WNL, no exudate. Chest: RRR, Normal S1, S2, distal pulses intact. Resp: Lungs diminished to auscultation bilaterally, no wheezes, rales, or rhonchi. Abdomen: Soft, non-distended, Normoactive bowel sounds all 4 quads. Musculoskeletal: Normal gait, Moves all 4 extremities without difficulty. Skin: No suspicious rashes or lesions. Capillary refill less than 2 sec. Neurologic: Cranial nerves II-XII intact. Alert and oriented x 3. Motor: No deficits noted. Sensory: Intact bilaterally all 4 extremities. Hematologic/Lymphatic: No ecchymosis, no lymphadenopathy. Course Vital Signs Vital signs: Vital Signs Temperature 36.9 C 10/09/24 19:16 Pulse 99 H 10/09/24 19:16 Respiratory Rate 18 10/09/24 19:16 Blood Pressure 147/77 H 10/09/24 19:16 Pulse Oximetry 99 10/09/24 19:16 Temperature 36.9 C 10/09/24 19:23 Temperature Source Oral 10/09/24 19:23 Pulse 99 H 10/09/24 19:23 Respiratory Rate 18 10/09/24 19:23 Blood Pressure 147/77 H 10/09/24 19:23 Blood Pressure Position Sitting 10/09/24 19:23 Pulse Oximetry 99 10/09/24 19:23 Oxygen Delivery Method Room Air 10/09/24 19:39 Oxygen Flow Rate 0 10/09/24 19:39 Pain Level 0 10/09/24 19:23 Medical Decision Making Feeling generally sick since Saturday, recently went to get the [facility] return on Saturday. Reports temp of 101.5, increased difficulty breathing, dizziness and chest tightness. On exam she does have pursed lip breathing, diminished lung sounds bilaterally does have a history of cholecystectomy carpal tunnel surgery hysterectomy aortic valve replacement COPD. She reports that she is a former smoker. DuoNeb ordered. Cardiac workup with serial troponins, CBC CMP PT PTT D-dimer Fluvid swab. Chest x-ray. EKG was reviewed by Dr. Dykes and myself ER attending, old EKG available for review. No leukocytosis, D-dimer is elevated at 3029 BUN/creatinine slightly elevated at 30 and 1.5 GFR 37.2 this looks like an acute kidney injury most likely due to dehydration, proBNP is 6631. Fluvid is pending at this time. I am concerned for PE CT chest PE protocol ordered. Chest x-ray shows no acute pulmonary findings. Patient does have sternotomy wires and prosthetic aortic valve. CT shows no PE, Discussed at length labs and CT results. Patient verbalized understanding. The aortic diameter is also the same as a echo result from 2022. I did discuss her elevated BNP as a possible cause for her shortness of breath. However with her acute kidney injury possible dehydration and already having some dizziness I am hesitant to prescribe her Lasix at this time. I will refer her to her primary care provider and place her on a care management list to get her an appointment early next week if possible. I did discuss strict return instructions to return if any worsening shortness of breath chest pain or concerns. Patient discharged in hemodynamically stable condition with her family. This text was generated using [employer] dictation system, please disregard any oddities of phrase or misspellings. Medical Records Medical records reviewed: Yes I reviewed the patient's medical records. Imaging Data Radiologic Study: Imaging: X-Ray Radiologist's impression: EXAM: XR PORTABLE CHEST AP CLINICAL HISTORY: SOB. TECHNIQUE: 2D digital imaging was performed. COMPARISON: No exams were available for comparison FINDINGS: Single AP portable view. There are sternotomy wires. There is a prosthetic aortic valve. Heart size is upper normal. The mediastinum is not widened. Lungs are clear. No infiltrates nor obvious pleural effusions. No evidence of pulmonary edema. No fractures. IMPRESSION: No acute pulmonary findings on this single AP portable view of the chest. Sternotomy wires. Prosthetic aortic valve. No pulmonary edema. Radiologic Study #2: Imaging: CT Scan Radiologist's impression: Vrad CT report: COMPARISON: CR XR PORTABLE CHEST AP 10/09/2024 7:57 PM FINDINGS: Pulmonary arteries: Normal. No pulmonary emboli. Aorta: Fusiform dilation of the ascending aorta measuring 3.9 cm in maximum diameter. Aorta is otherwise unremarkable. Lungs: Unremarkable. No consolidation. No masses. Pleural spaces: Unremarkable. No pneumothorax. No pleural effusion. Heart: Prosthetic aortic valve noted. Lymph nodes: Unremarkable. No enlarged lymph nodes. Bones/joints: Sternotomy wires in place. Changes moderate degenerative changes throughout the thoracic spine. No vertebral body compression. No acute fracture. Soft tissues: Unremarkable. IMPRESSION: 1. No evidence of pulmonary embolus or other acute abnormality in the chest 2. Ascending aortic aneurysm measuring 3.9 cm. No acute aortic pathology. Thank you for allowing us to participate in the care of your patient. Dictated and Authenticated by: Valentín Stroud MD Lab Data Lab results reviewed: Yes I reviewed the patient's lab results. Labs: Laboratory Tests Range/Units 10/09/24 10/09/24 19:35 19:42 WBC (4.4-10.8) 10^3/uL 9.58 RBC (3.93-5.22) 10^6/uL 3.37 L Hgb (11.2-15.7) g/dL 12.0 Hct (36.0-46.0) % 35.8 L MCV (80-95) fL 106 H MCH (27.0-33.0) pg 35.6 H MCHC (32.0-36.0) % 33.5 RDW (11.7-14.6) % 11.9 Plt Count (130-400) 10^3/uL 142 MPV (8.0-11.0) fL 9.5 Immature Gran % % 0.9 Neutrophils % % 68.0 Lymphocytes % % 14.0 Monocytes % % 16.0 Eosinophils % % 0.5 Basophils % % 0.6 Nucleated RBC % (0.0-0.3) % 0.2 Absolute Neutrophils (1.2-6.7) 10^3/uL 6.51 Absolute Lymphocytes (1.2-3.4) 10^3/uL 1.34 Absolute Monocytes (0.1-0.8) 10^3/uL 1.53 H Absolute Eosinophils (0.0-0.7) 10^3/uL 0.05 Absolute Basophils (0.0-0.2) 10^3/uL 0.06 RBC Morphology See Below Macrocytosis 2+ PT (9.1-11.1) sec 10.7 INR (0.9-1.1) 1.1 APTT (20.6-30.2) sec 27.0 D-Dimer (<500) ng/mlFEU 3029 H Sodium (136-145) mmol/L 138 Potassium (3.5-5.1) mmol/L 3.6 Chloride (98-107) mmol/L 101 Carbon Dioxide (21.0-32.0) mmol/L 29.4 Anion Gap (3-11) mmol/L 7.6 BUN (7-18) mg/dL 30 H Creatinine (0.55-1.02) mg/dL 1.5 H Est GFR (CKD-EPI 2020) (mL/min/1.73m2) 37.72 Glucose (74-106) mg/dL 75 Calcium (8.5-10.1) mg/dL 8.8 Magnesium (1.8-2.4) mg/dL 2.0 Total Bilirubin (0.2-1.0) mg/dL 0.31 AST (15-37) U/L 31 ALT (14-59) U/L 38 Alkaline Phosphatase (46-116) U/L 199 H Troponin I (<or=51) ng/L 29 NT-Pro-B Natriuret Pep (<300) pg/mL 6631 H Total Protein (6.4-8.2) g/dL 6.8 Albumin (3.4-5.0) g/dL 2.4 L Quality:SDOH Health Related Social Needs: No Data to Display PFSH All Active Problems (Updated 10/09/24 @ 22:18 by Adriana Vazquez NP) Dyspnea (Acute) Elevated brain natriuretic peptide (BNP) level (Acute) Postoperative follow-up (Acute) Impingement syndrome of right shoulder (Acute) Tendinitis of long head of biceps brachii of right shoulder (Acute) History of aortic valve replacement with bioprosthetic valve (Acute) Fracture of greater tuberosity of right humerus (Acute) Bursitis of right shoulder (Acute) Traumatic tear of right rotator cuff (Acute) Arthritis of right acromioclavicular joint (Acute) Hypertension (Chronic) Hyperlipidemia (Acute) Anxiety (Chronic) GERD (gastroesophageal reflux disease) (Chronic) Abdominal pain (Acute) Biliary colic (Acute) Medical History Cancer of cervix Chest pain Per pt. f/u with cards (last time was 04/01/23) COPD (chronic obstructive pulmonary disease) Hypothyroidism Surgical History History of cholecystectomy (~06/2023) History of esophagogastroduodenoscopy (~04/2023) History of arthroscopy of left shoulder History of carpal tunnel surgery (right) H/O: hysterectomy H/O aortic valve replacement 2014 Social History Smoking/Tobacco Use Status: Former Tobacco Use Quit Date: 09/09/01 Pack-years: 22 Smoking risk assessment performed?: Yes Alcohol Intake: current Alcohol Intake frequency: a few times a week Alcohol type: wine Drug use: Never Substance use type: does not use Household members: spouse Housing: house current occupation: hotel guest service agent Current gender identity: female What is your relationship status?: Panel score (0-1 are the most socially isolated patients): 1 Do you feel safe at home: Yes Do you feel safe in your relationship?: Yes PAWSS Have you Been Recently Intoxicated or Drunk Within the Last 30 days?: No Have you Ever Experienced Previous Episodes of Alcohol Withdrawal?: No Have you ever Experienced Withdrawal Seizures?: No Have you ever Experienced Delirium Tremens(DT)s?: No Have you ever undergone Alcohol Rehabilitation Treatment (i.e, inpt ot outpatient treatment programs)?: No Have you ever Experienced Blackouts?: No Have you ever Combined Alcohol with other Downers within the last 90 days?: No Have you ever Combined Alcohol with any other Substance of Abuse during the last 90 days?: No Positive Blood Alcohol level on Presentation? [PCS.BAL]: No Evidence of Increased Autonomic Activity (i.e. HR>120, tremor, sweating, agitation, nausea)?: No Result: 0
[2024-10-09 19:57] LABS: Diff Comment Agrees w/ Instrument; Macrocytosis 2+
[2024-10-09 20:03] LABS: INR 1.1 (0.9-1.1); Prothrombin Time 10.7 sec (9.1-11.1)
[2024-10-09 20:07] LABS: ALT 38 U/L (14-59); AST 31 U/L (15-37); Albumin 2.4 g/dL (3.4-5.0); Alkaline Phosphatase 199 U/L (46-116); Anion Gap 7.6 mmol/L (3-11); BUN 30 mg/dL (7-18); Bilirubin, Total 0.31 mg/dL (0.2-1.0); CO2 29.4 mmol/L (21.0-32.0); CREATININE 1.5 mg/dL (0.55-1.02); Calcium 8.8 mg/dL (8.5-10.1); Chloride 101 mmol/L (98-107); Estimated GFR 37.72 (mL/min/1.73m2); Glucose 75 mg/dL (74-106); NT-proBNP 6631 pg/mL (<300); Potassium 3.6 mmol/L (3.5-5.1); Sodium 138 mmol/L (136-145); Total Protein 6.8 g/dL (6.4-8.2); Troponin I 29 ng/L (<or=51)
[2024-10-09 20:16] LABS: D-Dimer 3029 ng/mlFEU (<500)
[2024-10-09] MEDS: Normal Saline 500 ML IV (20:27)
--- NOTE | 2024-10-09 20:35 | DI.VRAD_ITS ---
PROCEDURE INFORMATION: Exam: XR Chest Exam date and time: 10/09/2024 7:57 PM Age: 69 years old Clinical indication: Other: SOB; Prior surgery; Surgery date: 6+ months; Surgery type: Heart surgery in 2014. TECHNIQUE: Imaging protocol: Radiologic exam of the chest. Views: 1 view. COMPARISON: CT UPPER EXTREMITY RT WO 09/23/2020 1:54 PM FINDINGS: Lungs: Unremarkable. No consolidation. Pleural spaces: Unremarkable. No pleural effusion. No pneumothorax. Heart/Mediastinum: Prosthetic aortic valve noted. The heart is normal in size. Bones/joints: Old post sternotomy changes noted. IMPRESSION: No acute disease Dictated and Authenticated by: Valentín Stroud MD. Orderin George Wright MD
[2024-10-09] MEDS: Omnipaque 350 MG/ML 100 ML BTL 60 ML IJ (20:42)
[2024-10-09] MEDS: Normal Saline - Diluent 50 ML VIAL IJ (20:43)
[2024-10-09 20:53] LABS: Troponin I 23 ng/L (<or=51)
[2024-10-09 20:59] LABS: COVID-19 PCR Negative (Negative); Influenza A PCR Negative (Negative); Influenza B PCR Negative (Negative); RSV PCR Negative (Negative)
[2024-10-09 21:02] LABS: Source NASOPHARYNX
--- NOTE | 2024-10-09 21:15 | DI.CT_ITS ---
Exam(s) CT CHEST PE CTA EXAM: CT CHEST PE CTA CLINICAL HISTORY: SOB, elevated Dimer,. TECHNIQUE: Imaging Protocol: Axial CT angiography was performed with multi-slice acquisition and mu lti-planar and/or 3D reconstructions. Lung Computer Aided Detection (CAD) was utilized. CONTRAST MATERIAL: Intravenous: Omnipaque 350 contrast volume:60 mL COMPARISON: CR,XR XR PORTABLE CHEST AP from 10/09/2024 FINDINGS: Tracheobronchial tree: Patent where visualized. No bronchiectasis. Pulmonary parenchyma: Centrilobular emphysematous changes are seen in the lungs. No focal consolidat ing infiltrates are seen. There is scarring seen in the right middle lobe and left lingula. No pulm onary nodules are present. Pulmonary Arteries: No evidence of filling defect to suggest pulmonary emboli. Mediastinum and Aissatou: No dominant adenopathy or fluid collection. The esophagus is unremarkable. Visualized thyroid gland: Unremarkable. Pleura: No effusion or pneumothorax. Heart: The heart is not dilated. Coronary artery calcification is present. No pericardial effusion. There is a prosthetic aortic valve. Aorta: Ascending thoracic aorta measures 4.1 x 3.7 cm. No evidence of dissection. Atherosclerotic ca lcification is present. Upper abdomen: Unremarkable. Soft tissues: Unremarkable. Bones: Within normal limits for the patient's age.Sternal wires are in place. IMPRESSION: 1. No evidence of a pulmonary embolism or thoracic aortic dissection. 2. The ascending thoracic aorta measures 4.1 x 3.7 cm. 3. No acute pulmonary process. RADIATION DOSE DELIVERED: 46.07mGy.cm Total DLP DATA REPOSITORY: All CT scans at this facility are submitted to the National Radiology Data Registry (NRDR) Dose Index Registry (DIR) with the [employer] (ACR). RADIATION OPTIMIZATION: All CT scans at this facility use at least one of these dose optimization te chniques: automated exposure control; mA and/or kV adjustment per patient size (includes targeted exa ms where dose is matched to clinical indication); or iterative reconstruction.
--- NOTE | 2024-10-09 21:34 | DI.VRAD_ITS ---
PROCEDURE INFORMATION: Exam: CTA Chest With Contrast Exam date and time: 10/09/2024 9:02 PM Age: 69 years old Clinical indication: Shortness of breath; Prior surgery; Surgery date: 6+ months; Surgery type: Open heart surgery; SOB, elevated d dimer TECHNIQUE: Imaging protocol: Computed tomographic angiography of the chest with contrast. Exam focused on the arteries. 3D rendering (Not supervised by radiologist): MIP and/or 3D reconstructed images were created by the technologist. Radiation optimization: All CT scans at this facility use at least one of these dose optimization techniques: automated exposure control; mA and/or kV adjustment per patient size (includes targeted exams where dose is matched to clinical indication); or iterative reconstruction. Contrast material: [id number]; Contrast volume: 60 ml; Contrast route: INTRAVENOUS (IV); COMPARISON: CR XR PORTABLE CHEST AP 10/09/2024 7:57 PM FINDINGS: Pulmonary arteries: Normal. No pulmonary emboli. Aorta: Fusiform dilation of the ascending aorta measuring 3.9 cm in maximum diameter. Aorta is otherwise unremarkable. Lungs: Unremarkable. No consolidation. No masses. Pleural spaces: Unremarkable. No pneumothorax. No pleural effusion. Heart: Prosthetic aortic valve noted. Lymph nodes: Unremarkable. No enlarged lymph nodes. Bones/joints: Sternotomy wires in place. Changes moderate degenerative changes throughout the thoracic spine. No vertebral body compression. No acute fracture. Soft tissues: Unremarkable. IMPRESSION: 1. No evidence of pulmonary embolus or other acute abnormality in the chest 2. Ascending aortic aneurysm measuring 3.9 cm. No acute aortic pathology. Dictated and Authenticated by: Valentín Stroud MD. Orderin George Wright MD
== END 2024-10-09 22:29 | disposition home or self-care (01) ==
PROVIDERS: Emergency Provider Registered Nurse Emergency; PCP Family Medicine
DX: R06.00 Dyspnea, unspecified (principal); R79.89 Other specified abnormal findings of blood chemistry; Z86.79 Personal history of other diseases of the circulatory system; Z87.09 Personal history of other diseases of the respiratory system; Z95.3 Presence of xenogenic heart valve; I10 Essential (primary) hypertension
CPT/HCPCS: 36415; 71275; 80053; 87637; 93005; 94640; 96361; 96374; 99285; 71045; 83735; 83880; 84484; 85025; 85379; 85610; 85730; 93010; 99284; J2919; J3490; J7620

== ENCOUNTER 2024-10-14 10:26 | Outpatient (REF) | payer MEDICARE, SELFPAY ==
[2024-10-14 14:06] LABS: Abs Immature Grans 0.21 10^3/uL (0.0-0.06); Absolute Basophil Count 0.11 10^3/uL (0.0-0.2); Absolute Eosinophil Count 0.62 10^3/uL (0.0-0.7); Absolute Lymphocyte Count 2.33 10^3/uL (1.2-3.4); Absolute Monocyte Count 1.04 10^3/uL (0.1-0.8); Basophils % 0.8 %; Eosinophils % 4.4 %; HCT 37.6 % (36.0-46.0); HGB 12.5 g/dL (11.2-15.7); Immature Grans % 1.5 %; Lymphocytes % 16.6 %; MCH 35.5 pg (27.0-33.0); MCHC 33.2 % (32.0-36.0); MCV 107 fL (80-95); MPV 9.8 fL (8.0-11.0); Monocytes % 7.4 %; Neutrophils % 69.3 %; Platelet Count 348 10^3/uL (130-400); RBC 3.52 10^6/uL (3.93-5.22); RDW 12.7 % (11.7-14.6); RDW-SD 49.5 fL; WBC 14.06 10^3/uL (4.4-10.8)
[2024-10-14 14:12] LABS: Absolute Neutrophil Count 9.74 10^3/uL (1.2-6.7)
[2024-10-14 14:22] LABS: ALT 25 U/L (14-59); AST 16 U/L (15-37); Albumin 2.6 g/dL (3.4-5.0); Alkaline Phosphatase 150 U/L (46-116); Anion Gap 4.8 mmol/L (3-11); BUN 15 mg/dL (7-18); CO2 31.2 mmol/L (21.0-32.0); CREATININE 1.1 mg/dL (0.55-1.02); Chloride 106 mmol/L (98-107); Estimated GFR 54.73 (mL/min/1.73m2); Glucose 73 mg/dL (74-106); NT-proBNP 1175 pg/mL (<300); Potassium 4.7 mmol/L (3.5-5.1); Sodium 142 mmol/L (136-145)
== END 2024-10-14 10:27 | disposition home or self-care (01) ==
LOC: NCHCN 10:26
PROVIDERS: PCP Family Medicine; Visit Provider Family Medicine
DX: R06.00 Dyspnea, unspecified (principal)
CPT/HCPCS: 80053; 83880; 85025

== ENCOUNTER 2024-10-28 01:21 | Outpatient (CLI) | payer MEDICARE, SELFPAY ==
--- NOTE | 2024-10-28 08:30 | DI.US_ITS ---
APPROVED REPORT EXAM: Comprehensive 2D, Doppler, and color-flow Echocardiogram Patient Location: Out-Patient Sales Service Route Manager: Travis Funes RDCS (AE) Indications: Dyspnea Conclusion Normal left ventricular wall thickness and chamber size. Ejection fraction is 60 to 65%. Wall motio n is normal Normal right ventricular size and function Both atria are normal in size Aortic valve is calcified. Number of aortic valve leaflets cannot be determined. There is no hemody namically significant aortic stenosis, no aortic regurgitation Mild mitral regurgitation, mitral annular calcification Estimated right ventricular systolic pressure is normal at 26 mmHg Wall motion Left Ventricle The left ventricle is normal size. The left ventricular systolic function is normal. The left ventric ular ejection fraction is within the normal range. There is normal left ventricular wall thickness. T here is normal LV segmental wall motion. There is no ventricular septal defect visualized. LVEF is 60 -65%. Right Ventricle The right ventricle is normal size. The right ventricular systolic function is normal. Atria The left atrium size is normal. The right atrium size is normal. The interatrial septum is intact wit h no evidence for an atrial septal defect. Aortic Valve Aortic valve is calcified. Number of aortic valve leaflets could not be assessed. There is no aortic valvular stenosis. No aortic regurgitation is present. Mitral Valve Mild mitral annular calcification. No evidence of mitral valve stenosis. Mild mitral regurgitation. Tricuspid Valve The tricuspid valve is normal in structure. There is no tricuspid valve stenosis. mild tricuspid regu rgitation. The RVSP is 26.0 mmHg. Pulmonic Valve The pulmonary valve is normal in structure. There is no pulmonic valvular stenosis. There is no pulmo noel valvular regurgitation. Great Vessels The aortic root is normal in size. The ascending aorta is normal Aortic arch is not well visualized. IVC is normal in size and collapses >50% with inspiration. Pericardium There is no pericardial effusion. 2D Dimensions IVSD d PLAX 0.68 cm F: 0.6-1.0 Ao Root d 2.80 cm F: 2.7 - 3.3 LVPW d PLAX 0.67 cm F: 0.6 - 1.0 Ao Asc Diam d 3.20 cm F: 2.3 - 3.1 LVID d PLAX 4.75 cm F: 3.8 - 5.2 LVDs 3.20 cm F: 2.2 - 3.5 LV EF Teichholz 60.9 % FS 32.57 % LV EDV (Teich) 104.9 mL LV ESV (Teich) 41.0 mL Stroke Vol Index (Teich) 42.29 Auto EF LV EDV A4C 75.3 mL LV EDV A2C 71.6 mL LV EDV BP 74.4 mL LV ESV A4C 29.7 mL LV ESV A2C 26.1 mL LV ESV BP 27.9 mL LVEF(%) A4C 60.5 % LVEF(%) A2C 63.6 % LVEF(%) BP 62.4 % LV SV A4C 45.5 ml LV SV A2C 45.5 ml LV SV BP 46.4 ml LV CO A4C 2.8 L/min LV CO A2C 2.8 L/min LV CO BP 2.8 L/min HR A4C 61.02 BPM HR A2C 61.65 BPM LV EDV Index (BP) LA Volume LA Length A4C 4.4 cm LA Length A2C 4.1 cm LA Area A4C s 13.34 cm2 LA Area A2C s 9.37 cm2 LA Vol A4C A-L 34.47 mL LA Vol A2C A-L 18.12 mL LA Vol Biplane A-L 25.8 mL LA Vol/BSA A4C A-L LA Vol/BSA A2C A-L LA Vol/BSA BP A-L 17.1 mL/m2 LA Vol A4C MOD 32.8 mL LA Vol A2C MOD 16.7 mL LA Vol BP MOD 24.0 mL RA Volume RA Area A4C 7.6 cm2 RA ESV A4C (A-L) 12.9mL RA Vol/BSA A4C A-L RA Length A4C 3.8 cm RA ESV A4C (MOD) 11.9mL LV Diastology MV E' medial 0.060 (>0.07 m/s) MV E Vmax 0.77 (0.4-1.3 m/s) MV E/E' MED 12.92 (<14) MV A Vmax 0.75 (0.4-1.3 m/s) MV E' lateral 0.073 (>0.1 m/s) E/A Ratio 1.0 MV E/E' LAT 10.55 (<14) MV E' Average 0.066 m/s MV E/E'(average) 11.61 Aortic Valve AoV Vmax 1.78 m/s LVOT Vmax 0.95 m/s AoV Peak Grad 12.6 mmHg LVOT Peak Grad 3.6 mmHg AoV Area (Vmax) 1.02 cm2 LVOT VTI 0.238 m AoV VTI 0.405 m LVOT Mean Grad 2.3 mmHg AoV Mean Pablo. 1.20 m/s LVOT SV 45.03 mL AoV Mean Grad 6.7 mmHg LVOT Diam s 1.55 cm AoV Area (VTI) 1.11 cm2 AV Regurg Peak Gr. 12.61 mmHg Velocity Ratio 0.53 Mitral Valve MV DT 144 (160-240 msec) MV Vmax TIPS 0.74 m/s MV Mean Grad 0.9 (<2mmHg) MV VTI 0.244 m Pulmonary Valve PV Vmax 0.84 (0.5-1.5 m/s) RVOT Vmax 0.36 m/s PV Peak Grad 2.9 mmHg RVOT Peak Gr. 0.5 mmHg PV Mean Pablo 0.54 m/s RVOT VTI 0.083 m PV Mean Grad 1.4 mmHg RVOT Mean Gr. 0.4 mmHg Tricuspid Valve RA Pressure 3.00 mmHg TR Vmax 2.40 m/s TR Peak Grad 23.0 mmHg RVSP (TR) 26.0 mmHg
== END 2024-10-28 01:41 ==
LOC: DI 01:22
PROVIDERS: PCP Family Medicine; Visit Provider Internal Medicine Cardiovascular Disease
DX: R06.00 Dyspnea, unspecified (principal); I34.0 Nonrheumatic mitral (valve) insufficiency
CPT/HCPCS: 93306

== ENCOUNTER 2024-12-23 02:16 | Outpatient (CLI) | payer MEDICARE, SELFPAY ==
[2024-12-23 12:11] LABS: TSH (W/Ref FT4) 1.36 uIU/mL (0.36-3.74)
== END 2024-12-23 02:17 | disposition home or self-care (01) ==
LOC: LBO 02:16
PROVIDERS: PCP Family Medicine; Visit Provider Family Medicine
DX: E03.9 Hypothyroidism, unspecified (principal)
CPT/HCPCS: 36415; 84443

== ENCOUNTER 2025-06-11 08:51 | Outpatient (CLI) | payer MEDICARE, SELFPAY ==
--- NOTE | 2025-06-11 08:45 | RT.EKG_ITS ---
APPROVED REPORT Exam: Resting ECG Reason for Exam: follow up needed Patient Location: O HR:65 bpm ECG Measurements Heart Rate 65 AXIS AR 192 P 44 QRSd 91 QRS 1 QT 425 T 54 QTc 442 Conclusion Sinus rhythm...normal P axis, V-rate 50- 99 Normal Electrocardiogram
== END 2025-06-11 08:52 | disposition home or self-care (01) ==
LOC: DI.CARD 08:56
PROVIDERS: PCP Family Medicine; Visit Provider Internal Medicine Cardiovascular Disease
DX: J44.9 Chronic obstructive pulmonary disease, unspecified (principal); R07.9 Chest pain, unspecified
CPT/HCPCS: 93010

== ENCOUNTER → 2025-06-11 08:51 | Outpatient (BNVA) | payer MEDICARE, SELFPAY | PROVIDERS: PCP Family Medicine; Referring Provider Family Medicine; Visit Provider Internal Medicine Cardiovascular Disease | DX: J44.9 Chronic obstructive pulmonary disease, unspecified (principal); R07.9 Chest pain, unspecified; Z95.3 Presence of xenogenic heart valve | CPT/HCPCS: 99213; 93005 ==